=== PATIENT | male | born 1945 | race Caucasian/White ===

== ENCOUNTER 2017-08-23 15:17 | Emergency (ER) | payer OTHER, MEDICARE ==
[~2017-08-23] VITALS: Ht 175.3 cm; Wt 61.2 kg
[~2017-08-23 15:17] MED LIST: FLUO0.05 TOP; GLUC500C60 PO; Harvoni PO; LTRSCR45 TOP; MUTLIVITAMIN PO; NIAC500T7 PO; PRLSR20 PO; SYN75 PO; TOLNAFTATE TOP; TRAM-10 PO; ZNTT/150 PO; ketoconazole shampoo XX
[2017-08-23 15:30] VITALS: Ht 175.3 cm; Wt 61.2 kg
--- NOTE | 2017-08-23 15:54 | EMERGENCY ROOM VISIT NOTE ---
History Report prepared by Mariam: Mee Ewing Under the Supervision of: Dr. Cristina Aaron D.O. First contact with patient: 15:35 Chief Complaint: FALL Stated Complaint: FALL History of Present Illness The patient is a 72 year old male who presents to the Emergency Room with complaints of two episode of a fall occurring three days ago. The patient states he fell from a "scoliosis squatting position". The patient states that he hit his head and neck. He denies LOC. He believes he fell be cause he had a "loss of equilibrium". He fell a second time when he was getting up from the first fall. The patient has a history of falls and he believes his baseline standing position causes his falls. He reports that this episode of a fall felt different than his normal feeling of just being off balance. He reports right sided head pain and neck pain. Otherwise, the patient reports feeling well since the fall. He has had constipation for the past 4 days. He notes numbness and swelling of his legs which is normal for him. He wears compression stockings because he has lymphedema. The patient states the worsening bruises on his head concerned him and prompted him to come to the ED. The patient uses a cane to ambulate and he states he was not using it when he fell. The patient reports going to the cancer center for an annual check four days ago and states all of his counts were normal. He has a history of oropharyngeal cancer. Pt denies headache, dizziness, change in vision, fevers, chest pain, shortness of breath, nausea, vomiting, diarrhea, pain with urination, and melena. The patient has a history of vertigo and normal has episodes of vertigo twice a year. He states this episode of a fall is not like his previous episodes of vertigo. Source of History: patient Onset: 4 days ago Position: other (generalized) Quality: other (fall) Timing: other (episode ) Associated Symptoms: + neck pain, No headache, No chest pain, No SOB, No nausea, No vomiting, No urinary symptoms Review of Systems See HPI for pertinent positives & negatives. A total of 10 systems reviewed and were otherwise negative. Past Medical & Surgical Medical Problems: (1) Hepatitis (2) Oropharyngeal cancer (3) Repair of inguinal hernia Family History Patient reports no known family medical history. Social History Marital Status: single Housing Status: lives alone Occupation Status: disabled Current/Historical Medications Scheduled Levothyroxine Sodium (Synthroid), 75 MCG PO DAILY Tolnaftate (Tolnaftate), 1 APPLN TOP BID Scheduled PRN Ranitidine (Zantac), 75 MG PO DAILY PRN for HEARTBURN Allergies Coded Allergies: Morphine (Verified Adverse Reaction, Unknown, LOW BP, 08/23/17) Oxycodone (Verified Adverse Reaction, Unknown, INTOLERANCE PER DR NICHOLSON-- ELEVATED LIVER ENZYMES, 08/23/17) Physical Exam Vital Signs Date Time Temp Pulse Resp B/P (MAP) Pulse Ox O2 Delivery O2 Flow Rate FiO2 08/23/17 19:33 36.6 65 20 178/95 100 Room Air 08/23/17 18:18 68 20 185/100 100 Room Air 08/23/17 17:13 73 20 171/99 95 Room Air 08/23/17 16:18 67 08/23/17 15:30 36.7 65 20 174/102 100 Room Air Physical Exam GENERAL: alert, well appearing, well nourished, no distress, non-toxic EYE EXAM: normal conjunctiva, PERRL and EOM's grossly intact OROPHARYNX: no exudate, no erythema, lips, buccal mucosa, and tongue normal and mucous membranes are moist. HEAD: ecchymosis to right lateral forehead and right supraorbital region, no periorbital edema no subconjunctival hemorrhage, no hyphema. NECK: supple, no nuchal rigidity, no adenopathy, non-tender LUNGS: Clear to auscultation. Normal chest wall mechanics. No chest wall tenderness, no crepitus. HEART: no murmurs, S1 normal and S2 normal ABDOMEN: abdomen soft, non-tender, normo-active bowel sounds, no masses, no rebound or guarding. Pelvis stable. BACK: Severe kyphoscoliosis. No midline tenderness, no CVA tenderness. SKIN: no rashes and no bruising UPPER EXTREMITIES:No evidence of trauma, full ROM, upper extremities are grossly normal. LOWER EXTREMITIES: Chronic 2+ lower extremity edema. No evidence of trauma, full ROM, normal pulses. NEURO EXAM: Normal sensorium, cranial nerves II-XII grossly intact, normal speech, no gross weakness of arms, no gross weakness of legs. Medical Decision & Procedures ER Provider Diagnostic Interpretation: Radiology results have been interpreted by the radiologist and reviewed by me. CERVICAL SPINE W/O FINDINGS: Database Security Expert topogram: Unremarkable. Slight reversal of normal cervical lordosis at C4-5. 2 to 3 mm of grade 1 anterolisthesis of C4 on C5. Mild osteopenia. No acute fracture or malalignment. Vertebral body height essentially preserved. Intervertebral disc height loss at multiple levels with disc osteophyte complexes. Degenerative changes further detailed below. C2-3: Osseous fusion noted across the left C2-3 facet joints. No osseous neural foraminal or spinal canal narrowing. C3-4: Disc osteophyte complex with mild posterior bony spurring. Mild right osseous neural foraminal narrowing. C4-5: Disc osteophyte complex without significant posterior bony spurring. No significant neural foraminal or spinal canal narrowing. C5-6: Disc osteophyte complex without significant neural foraminal or spinal canal narrowing. C6-7: Disc osteophyte complex with mild posterior bony spurring. No significant osseous neural foraminal or spinal canal narrowing. Paraspinal soft tissues remarkable for atherosclerosis. Lung apices clear. IMPRESSION: 1. No acute osseous injury of the cervical spine. 2. Multilevel degenerative change as above. Electronically signed by: Dexter Ely M.D. CHEST ONE VIEW PORTABLE FINDINGS: Severe scoliosis of the thoracolumbar spine is noted. Linear left basilar opacities are suggestive of atelectasis. Cardiomediastinal silhouette is stable. There is no pneumothorax or pleural effusion. There are several old right rib fractures. IMPRESSION: No acute cardiopulmonary findings. No change in appearance of the chest. Electronically signed by: Nolberto Roque M.D. CT OF THE HEAD WITHOUT CONTRAST FINDINGS: No acute intracranial hemorrhage, midline shift or mass effect is present. Ventricular system is unremarkable for age. Basilar cisterns are patent. There are no extra-axial collections. Mild white matter hypodensities suggest small vessel disease. There is bilateral basal ganglia calcification. There are no findings to suggest acute dural sinus thrombosis or acute territorial infarct. No calvarial fracture is identified. Visualized portions of the sinuses and mastoid air cells are clear. IMPRESSION: 1. No acute intracranial findings. 2. No calvarial fracture. Electronically signed by: Nolberto Roque M.D. PELVIS 1 OR 2 VIEW ROUTINE FINDINGS: The sacroiliac joints and symphysis pubis are intact. There is no acute fracture identified within the pelvis or the hips. 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 Levoscoliosis of the lumbar spine is partially imaged. IMPRESSION: No acute fracture within the pelvis or hips. Electronically signed by: Nolberto Roque M.D. Laboratory Results 08/23/17 16:15 Red Blood Count 3.71, Mean Corpuscular Volume 97.3, Mean Corpuscular Hemoglobin 32.9, Mean Corpuscular Hemoglobin Concent 33.8, Mean Platelet Volume 8.8, Neutrophils (%) (Auto) 74.9, Lymphocytes (%) (Auto) 11.7, Monocytes (%) (Auto) 10.4, Eosinophils (%) (Auto) 1.7, Basophils (%) (Auto) 0.2, Neutrophils # (Auto ) 4.76, Lymphocytes # (Auto) 0.74, Monocytes # (Auto) 0.66, Eosinophils # (Auto ) 0.11, Basophils # (Auto) 0.01 08/23/17 16:15 Test 08/23/17 16:15 08/23/17 17:15 White Blood Count 6.35 K/uL (4.8-10.8) Red Blood Count 3.71 M/uL (4.7-6.1) Hemoglobin 12.2 g/dL (14.0-18.0) Hematocrit 36.1 % (42-52) Mean Corpuscular Volume 97.3 fL (80-100) Mean Corpuscular Hemoglobin 32.9 pg (25-34) Mean Corpuscular Hemoglobin Concent 33.8 g/dl (32-36) Platelet Count 228 K/uL (130-400) Mean Platelet Volume 8.8 fL (7.4-10.4) Neutrophils (%) (Auto) 74.9 % Lymphocytes (%) (Auto) 11.7 % Monocytes (%) (Auto) 10.4 % Eosinophils (%) (Auto) 1.7 % Basophils (%) (Auto) 0.2 % Neutrophils # (Auto) 4.76 K/uL (1.4-6.5) Lymphocytes # (Auto) 0.74 K/uL (1.2-3.4) Monocytes # (Auto) 0.66 K/uL (0.11-0.59) Eosinophils # (Auto) 0.11 K/uL (0-0.5) Basophils # (Auto) 0.01 K/uL (0-0.2) RDW Standard Deviation 44.6 fL (36.4-46.3) RDW Coefficient of Variation 12.8 % (11.5-14.5) Immature Granulocyte % (Auto) 1.1 % Immature Granulocyte # (Auto) 0.07 K/uL (0.00-0.02) Prothrombin Time 11.0 SECONDS (9.0-12.0) Prothromb Time International Ratio 1.0 (0.9-1.1) Anion Gap 4.0 mmol/L (3-11) Est Creatinine Clear Calc Drug Dose 62.6 ml/min Estimated GFR () 96.6 Estimated GFR (Non- 83.3 BUN/Creatinine Ratio 22.9 (10-20) Calcium Level 8.1 mg/dl (8.5-10.1) Magnesium Level 2.4 mg/dl (1.8-2.4) Total Bilirubin 0.5 mg/dl (0.2-1) Aspartate Amino Transf (AST/SGOT) 26 U/L (15-37) Alanine Aminotransferase (ALT/SGPT) 29 U/L (12-78) Alkaline Phosphatase 61 U/L (45-117) Troponin I < 0.015 ng/ml (0-0.045) Total Protein 6.3 gm/dl (6.4-8.2) Albumin 3.0 gm/dl (3.4-5.0) Globulin 3.3 gm/dl (2.5-4.0) Albumin/Globulin Ratio 0.9 (0.9-2) Lipase 130 U/L (73-393) Influenza Type A Antigen Neg for Influ A (NEG) Influenza Type B Antigen Neg for Influ B (NEG) Urine Color YELLOW Urine Appearance CLEAR (CLEAR) Urine pH 5.5 (4.5-7.5) Urine Specific [place] 1.012 (1.000-1.030) Urine Protein NEG (NEG) Urine Glucose (UA) NEG (NEG) Urine Ketones NEG (NEG) Urine Occult Blood NEG (NEG) Urine Nitrite NEG (NEG) Urine Bilirubin NEG (NEG) Urine Urobilinogen NEG (NEG) Urine Leukocyte Esterase NEG (NEG) Laboratory results per my review. ED Course 1539: The patient was evaluated in room B2. A complete history and physical exam was performed. 1840: The patient ambulated with steady gait using cane. He denies any symptoms during ambulation. Case management is going to arrange the patient a ride home. The patient's blood pressure was 160/100. Medical Decision Differential diagnosis: Etiologies such as fracture, dislocation, intra-abdominal, pneumothorax, intrathoracic , intracranial, neurologic, as well as other traumatic pathologies were entertained. Pt not anticoagulated, no prodromal sx to suggest usual vertigo or acs, pe cva, dysrhythmia. Likely related to hx of being off balance and requiring a cane from severe kyphoscoliosis. No evidence of trauma. Pt able to ambulate here without any additional difficulty and no evolving symptoms. Discussed with pt f /u with PCP, sx to watch/return for, he verbalized understanding and was agreeable with plan. Medication Reconcilliation Current Medication List: was personally reviewed by me Blood Pressure Screening Patient's blood pressure: Elevated blood pressure Blood pressure disposition: Referred to PCP Impression Primary Impression: Fall Additional Impressions: Contusion of multiple sites CHI (closed head injury) Scribe Attestation The scribe's documentation has been prepared under my direction and personally reviewed by me in its entirety. I confirm that the note above accurately reflects all work, treatment, procedures, and medical decision making performed by me. Departure Information Dispostion Home / Self-Care Referrals Ivette Ayers M.D. (PCP) Forms HOME CARE DOCUMENTATION FORM, IMPORTANT VISIT INFORMATION Patient Instructions My [facility] Additional Instructions Please continue regular medications as prescribed. Please follow up with your family doctor to recheck your injuries and make sure you're getting better. If you have any recurrent falls, develop dizziness or lightheadedness, feel you're unable to walk, develop chest pain, trouble breathing, headaches, vision changes , worsening lower extremity swelling, or you've any other new concerns, please return the emergency room. Problem Qualifiers Primary Impression: Fall Encounter type: initial encounter Qualified Codes: W19.XXXA - Unspecified fall, initial encounter Additional Impressions: CHI (closed head injury) Encounter type: initial encounter Qualified Codes: S09.90XA - Unspecified injury of head, initial encounter
--- NOTE | 2017-08-23 16:23 | DIAGNOSTIC IMAGING REPORT ---
CHEST ONE VIEW PORTABLE CLINICAL HISTORY: Fall. COMPARISON STUDY: Chest radiograph January 12, 2016. FINDINGS: Severe scoliosis of the thoracolumbar spine is noted. Linear left basilar opacities are suggestive of atelectasis. Cardiomediastinal silhouette is stable. There is no pneumothorax or pleural effusion. There are several old right rib fractures. IMPRESSION: No acute cardiopulmonary findings. No change in appearance of the chest. Electronically signed by: Nolberto Roque M.D. 08/23/2017 4:22 PM Dictated Date/Time: 08/23/2017 4:20 PM
[2017-08-23 16:24] LABS: BASO % 0.2 %; BASO ABS # 0.01 K/uL (0-0.2); COMPLETE YES; EOS % 1.7 %; HEMATOCRIT 36.1 % (42-52); IG% 1.1 %; LYMPH % 11.7 %; LYMPH ABS # 0.74 K/uL (1.2-3.4); MEAN CELL VOLUME 97.3 fL (80-100); MEAN CORPUSCULAR HEMOGLOBIN 32.9 pg (25-34); MEAN CORPUSCULAR HGB CONC 33.8 g/dl (32-36); MEAN PLATELET VOLUME 8.8 fL (7.4-10.4); MONO % 10.4 %; NEUT % 74.9 %; PLATELET COUNT 228 K/uL (130-400); RED BLOOD COUNT 3.71 M/uL (4.7-6.1); WHITE BLOOD COUNT 6.35 K/uL (4.8-10.8)
[2017-08-23 16:45] LABS: ALT/SGPT 29 U/L (12-78); BLOOD UREA NITROGEN 21 mg/dl (7-18); BUN/CREATININE RATIO 22.9 (10-20); CALCIUM 8.1 mg/dl (8.5-10.1); CARBON DIOXIDE 31 mmol/L (21-32); CHLORIDE 102 mmol/L (98-107); CREATININE 0.91 mg/dl (0.60-1.40); GLUCOSE 81 mg/dl (70-99); MAGNESIUM 2.4 mg/dl (1.8-2.4); POTASSIUM 4.3 mmol/L (3.5-5.1); SODIUM 137 mmol/L (136-145)
[2017-08-23 16:50] LABS: ALB/GLOB RATIO 0.9 (0.9-2); ALKALINE PHOSPHATASE 61 U/L (45-117); AST/SGOT 26 U/L (15-37)
--- NOTE | 2017-08-23 16:57 | DIAGNOSTIC IMAGING REPORT ---
PELVIS 1 OR 2 VIEW ROUTINE CLINICAL HISTORY: Fall. COMPARISON STUDY: PET/CT June 24, 2010. FINDINGS: The sacroiliac joints and symphysis pubis are intact. There is no acute fracture identified within the pelvis or the hips. 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 Levoscoliosis of the lumbar spine is partially imaged. IMPRESSION: No acute fracture within the pelvis or hips. Electronically signed by: Nolberto Roque M.D. 08/23/2017 4:56 PM Dictated Date/Time: 08/23/2017 4:55 PM
--- NOTE | 2017-08-23 17:06 | DIAGNOSTIC IMAGING REPORT ---
CT OF THE HEAD WITHOUT CONTRAST CLINICAL HISTORY: Trauma. COMPARISON STUDY: PET CT June 24, 2010, head CT October 05, 2009 and MRI of the brain December 04, 2008. CT DOSE: 1126.16 mGy.cm TECHNIQUE: Helical axial images of the head were obtained without IV contrast. Automated exposure control was utilized for the study. A dose lowering technique was utilized adhering to the principles of ALARA. FINDINGS: No acute intracranial hemorrhage, midline shift or mass effect is present. Ventricular system is unremarkable for age. Basilar cisterns are patent. There are no extra-axial collections. Mild white matter hypodensities suggest small vessel disease. There is bilateral basal ganglia calcification. There are no findings to suggest acute dural sinus thrombosis or acute territorial infarct. No calvarial fracture is identified. Visualized portions of the sinuses and mastoid air cells are clear. IMPRESSION: 1. No acute intracranial findings. 2. No calvarial fracture. Electronically signed by: Nolberto Roque M.D. 08/23/2017 5:05 PM Dictated Date/Time: 08/23/2017 5:02 PM
--- NOTE | 2017-08-23 17:16 | DIAGNOSTIC IMAGING REPORT ---
CERVICAL SPINE W/O CLINICAL HISTORY: 72 years-old Male presenting with trauma, pain. TECHNIQUE: Multidetector CT of the cervical spine was performed without the use of intravenous contrast. IV contrast: None. A dose lowering technique was used consistent with the principles of ALARA (as low as reasonably achievable). COMPARISON: MR C-spine from 2009. CT DOSE (mGy.cm): The estimated cumulative dose is 1126.16. FINDINGS: Learning Operations Specialist topogram: Unremarkable. Slight reversal of normal cervical lordosis at C4-5. 2 to 3 mm of grade 1 anterolisthesis of C4 on C5. Mild osteopenia. No acute fracture or malalignment. Vertebral body height essentially preserved. Intervertebral disc height loss at multiple levels with disc osteophyte complexes. Degenerative changes further detailed below. C2-3: Osseous fusion noted across the left C2-3 facet joints. No osseous neural foraminal or spinal canal narrowing. C3-4: Disc osteophyte complex with mild posterior bony spurring. Mild right osseous neural foraminal narrowing. C4-5: Disc osteophyte complex without significant posterior bony spurring. No significant neural foraminal or spinal canal narrowing. C5-6: Disc osteophyte complex without significant neural foraminal or spinal canal narrowing. C6-7: Disc osteophyte complex with mild posterior bony spurring. No significant osseous neural foraminal or spinal canal narrowing. Paraspinal soft tissues remarkable for atherosclerosis. Lung apices clear. IMPRESSION: 1. No acute osseous injury of the cervical spine. 2. Multilevel degenerative change as above. Electronically signed by: Dexter Ely M.D. 08/23/2017 5:15 PM Dictated Date/Time: 08/23/2017 5:03 PM
[2017-08-23 17:44] LABS: URINE APPEARANCE CLEAR (CLEAR); URINE BILIRUBIN NEG (NEG); URINE COLOR YELLOW; URINE NITRITE NEG (NEG); URINE PH 5.5 (4.5-7.5); URINE SPECIFIC GRAVITY 1.012 (1.000-1.030); UROBILINOGEN NEG (NEG); ZZUR CULT IF INDIC CLEAN CATCH NO
[2017-08-23 17:53] LABS: MANUAL MICROSCOPIC REQUIRED? NO; REVIEW REQ? NO
[2017-08-23] MEDS ORDERED: ZNTT/150 PO (18:21)
[2017-08-23] MEDS ORDERED: LEVO75TA PO (18:21)
[2017-08-23] MEDS ORDERED: TOLN1CRE26 TOP (18:21)
[2017-08-23 19:33] VITALS: BP 178/95; PULSE 65; TEMP 36.6; O2SAT 100
== END 2017-08-23 19:35 | disposition home or self-care (01) ==
LOC: EDBD 15:17 → C.EDB 15:18
DX: T14.8XXA Other injury of unspecified body region, initial encounter (principal); S09.90XA Unspecified injury of head, initial encounter; W19.XXXA Unspecified fall, initial encounter; Y92.9 Unspecified place or not applicable; Z86.19 Personal history of other infectious and parasitic diseases; Z85.818 Personal history of malignant neoplasm of other sites of lip, oral cavity, and pharynx; Z79.899 Other long term (current) drug therapy

== ENCOUNTER 2017-12-14 00:59 | Inpatient (IN) | payer OTHER, MEDICARE ==
[~2017-12-14] VITALS: Ht 177.8 cm; Wt 72.6 kg
[2017-12-14] VITALS (10 sets, daily range): BP systolic 107–165; BP diastolic 67–94; PULSE 68–96; TEMP 36.3–37.1; O2SAT 96–100; BMI 19.9; BMI 20.6
[~2017-12-14 00:59] MED LIST changes: -FLUO0.05 TOP; -GLUC500C60 PO; -Harvoni PO; +LEVO75TA PO; -LTRSCR45 TOP; -MUTLIVITAMIN PO; -NIAC500T7 PO; -PRLSR20 PO; +RANI150T85 PO; -SYN75 PO; +TOLN1CRE26 TOP; -TOLNAFTATE TOP; -TRAM-10 PO; -ZNTT/150 PO; -ketoconazole shampoo XX
[2017-12-14] MEDS ORDERED: FENTANYL CITRATE INJ 50 MCG/1 ML 2 ML VIAL ONE ×3 (01:21→16:59)
[2017-12-14 01:43] LABS: BASO % 0.1 %; BASO ABS # 0.01 K/uL (0-0.2); EOS % 0.5 %; EOS ABS # 0.05 K/uL (0-0.5); HEMATOCRIT 38.9 % (42-52); HEMOGLOBIN 13.3 g/dL (14.0-18.0); LYMPH % 7.6 %; LYMPH ABS # 0.75 K/uL (1.2-3.4); MEAN CORPUSCULAR HEMOGLOBIN 32.8 pg (25-34); MEAN CORPUSCULAR HGB CONC 34.2 g/dl (32-36); MEAN PLATELET VOLUME 8.4 fL (7.4-10.4); MONO % 4.7 %; MONO ABS # 0.47 K/uL (0.11-0.59); NEUT % 86.1 %; NEUT ABS # 8.55 K/uL (1.4-6.5); PLATELET COUNT 202 K/uL (130-400); RED CELL DISTRIBUTION WIDTH CV 12.7 % (11.5-14.5); RED CELL DISTRIBUTION WIDTH SD 44.2 fL (36.4-46.3); WHITE BLOOD COUNT 9.93 K/uL (4.8-10.8)
[2017-12-14 01:53] LABS: INR 1.1 (0.9-1.1); PTT PATIENT 23.2 SECONDS (21.0-31.0)
[2017-12-14 02:00] LABS: CALCIUM 8.2 mg/dl (8.5-10.1); CREATININE 0.94 mg/dl (0.60-1.40); POTASSIUM 3.5 mmol/L (3.5-5.1)
--- NOTE | 2017-12-14 02:22 | EMERGENCY ROOM VISIT NOTE ---
ED Visit Note First contact with patient: 01:08 I saw this patient in conjunction with Ashlee Pina PA-C. I agree with her decision making and treatment plan.
[2017-12-14] MEDS ORDERED: FENTANYL CITRATE INJ 50 MCG/1 ML 2 ML VIAL IV STA (02:39)
--- NOTE | 2017-12-14 03:21 | EMERGENCY ROOM VISIT NOTE ---
History First contact with patient: 01:08 Chief Complaint: HIP PAIN Stated Complaint: HIP PAIN/FALL History of Present Illness The patient is a 72 year old male who presents to the Emergency Room with complaints of right hip pain after a fall. The fall occurred approximately 2-3 hours ago. The patient states that he has a "loss of equilibrium" and lost his balance, falling back into a chair. He fell directly onto his right hip. He did hit his head. He reports sharp pain in the right hip noted a 9/10. The pain radiates into the thigh. It is worsened by any movements of the leg or touching the hip. He did receive some pain medication in the ambulance which helped slightly. He denies pain elsewhere. The patient states that this loss of equilibrium is a chronic issue for him and he has been seen for in the past. He has a history of oropharyngeal cancer and subsequent hypothyroidism and takes Synthroid for this. The patient denies any other medical problems. The fall was not associated with any lightheadedness, chest pain or shortness of breath. The patient lives in an apartment alone and was able to contact EMS by life alert. Review of Systems A complete 10 point review of systems was reviewed with the patient with pertinent positives and negatives as per history of present illness. All else were negative. Past Medical/Surgical History Medical Problems: (1) Hepatitis (2) Oropharyngeal cancer (3) Repair of inguinal hernia Family History Patient reports no known family medical history. Social History Smoking Status: Former Smoker Marital Status: single Housing Status: lives alone Occupation Status: disabled Current/Historical Medications Scheduled Levothyroxine Sodium (Synthroid), 75 MCG PO DAILY Tolnaftate (Tolnaftate), 1 APPLN TOP BID Scheduled PRN Ranitidine (Zantac), 75 MG PO DAILY PRN for HEARTBURN Physical Exam Vital Signs Date Time Temp Pulse Resp B/P (MAP) Pulse Ox O2 Delivery O2 Flow Rate FiO2 12/14/17 04:31 116/65 12/14/17 04:17 64 12 96 Room Air 12/14/17 04:11 114/63 12/14/17 04:09 Room Air 12/14/17 03:47 67 14 12/14/17 03:42 67 18 12/14/17 03:31 118/67 12/14/17 03:12 76 19 12/14/17 03:00 149/84 12/14/17 02:42 68 12 100 12/14/17 02:37 149/84 12/14/17 02:35 68 18 176/85 95 Room Air 12/14/17 02:04 77 14 100 12/14/17 01:59 75 16 12/14/17 01:29 71 12 93 Room Air 12/14/17 01:24 184/94 12/14/17 01:11 36.5 69 19 184/94 94 Room Air 12/14/17 01:08 65 12/14/17 01:02 184/94 Physical Exam VITALS: Vitals are noted on the nurse's note and reviewed by myself. Vital signs stable. GENERAL: This is a 72-year-old male, in no acute distress but uncomfortable appearing, well-developed well-nourished. SKIN: The skin was without rashes, erythema, edema, or bruising. HEAD: Normocephalic atraumatic. EARS: External auditory canals clear, tympanic membranes pearly garcia without erythema or effusion bilaterally. No hemotympanum. EYES: Pupils equal round and reactive to light and accommodation. Extraocular movements intact. MOUTH: Mucous membranes moist. NECK: Supple without nuchal rigidity. Cervical spine is nontender. HEART: Regular rate and rhythm without murmurs gallops or rubs. LUNGS: Clear to auscultation bilaterally without wheezes, rales or rhonchi. MUSCULOSKELETAL: Patient's right leg is folded underneath his left leg in position of comfort. There is tenderness to palpation to the right lateral hip. No tenderness of the knee or tibia/fibula. Dorsalis pedis pulse 2+. Otherwise no tenderness on exam. NEURO: Patient was alert and oriented to person place and time. Medical Decision & Procedures ER Provider Diagnostic Interpretation: CT HEAD: No acute intracranial hemorrhage, mass, or shift in midline structure. Small vessel ischemic changes in the white matter. Cerebral atrophy. Paranasal sinuses and mastoid air cells are clear. Calvarium is intact. CT C SPINE: Impression: No evidence of fracture. Grade 1 anterolisthesis of C4 on C5 secondary to facet arthrosis. Moderate to severe multilevel cervical spondylosis is not significantly changed from the prior exam. Osseous fusion between the left C2 and C3 posterior facets. Loss of cervical lordosis may be due to positioning or muscle spasm. Radiologist: Gualberto Baril, DO RIGHT FEMUR, PELVIS W/ UNILATERAL HIP: Intertrochanteric fracture of the right femur. No pelvic fracture is noted. CHEST 1 VIEW: Significant scoliosis noted. No acute cardiopulmonary findings. Laboratory Results 12/14/17 01:36 Red Blood Count 4.05, Mean Corpuscular Volume 96.0, Mean Corpuscular Hemoglobin 32.8, Mean Corpuscular Hemoglobin Concent 34.2, Mean Platelet Volume 8.4, Neutrophils (%) (Auto) 86.1, Lymphocytes (%) (Auto) 7.6, Monocytes (%) (Auto) 4.7, Eosinophils (%) (Auto) 0.5, Basophils (%) (Auto) 0.1, Neutrophils # (Auto) 8.55, Lymphocytes # (Auto) 0.75, Monocytes # (Auto) 0.47, Eosinophils # (Auto) 0.05, Basophils # (Auto) 0.01 12/14/17 01:36 Test 12/14/17 01:36 12/14/17 01:45 White Blood Count 9.93 K/uL (4.8-10.8) Red Blood Count 4.05 M/uL (4.7-6.1) Hemoglobin 13.3 g/dL (14.0-18.0) Hematocrit 38.9 % (42-52) Mean Corpuscular Volume 96.0 fL (80-100) Mean Corpuscular Hemoglobin 32.8 pg (25-34) Mean Corpuscular Hemoglobin Concent 34.2 g/dl (32-36) Platelet Count 202 K/uL (130-400) Mean Platelet Volume 8.4 fL (7.4-10.4) Neutrophils (%) (Auto) 86.1 % Lymphocytes (%) (Auto) 7.6 % Monocytes (%) (Auto) 4.7 % Eosinophils (%) (Auto) 0.5 % Basophils (%) (Auto) 0.1 % Neutrophils # (Auto) 8.55 K/uL (1.4-6.5) Lymphocytes # (Auto) 0.75 K/uL (1.2-3.4) Monocytes # (Auto) 0.47 K/uL (0.11-0.59) Eosinophils # (Auto) 0.05 K/uL (0-0.5) Basophils # (Auto) 0.01 K/uL (0-0.2) RDW Standard Deviation 44.2 fL (36.4-46.3) RDW Coefficient of Variation 12.7 % (11.5-14.5) Immature Granulocyte % (Auto) 1.0 % Immature Granulocyte # (Auto) 0.10 K/uL (0.00-0.02) Prothrombin Time 11.2 SECONDS (9.0-12.0) Prothromb Time International Ratio 1.1 (0.9-1.1) Activated Partial Thromboplast Time 23.2 SECONDS (21.0-31.0) Partial Thromboplastin Ratio 0.9 Anion Gap 7.0 mmol/L (3-11) Est Creatinine Clear Calc Drug Dose 61.1 ml/min Estimated GFR () 92.9 Estimated GFR (Non- 80.1 BUN/Creatinine Ratio 22.6 (10-20) Calcium Level 8.2 mg/dl (8.5-10.1) Urine Color YELLOW Urine Appearance CLEAR (CLEAR) Urine pH 7.5 (4.5-7.5) Urine Specific [place] 1.014 (1.000-1.030) Urine Protein NEG (NEG) Urine Glucose (UA) NEG (NEG) Urine Ketones NEG (NEG) Urine Occult Blood NEG (NEG) Urine Nitrite NEG (NEG) Urine Bilirubin NEG (NEG) Urine Urobilinogen NEG (NEG) Urine Leukocyte Esterase NEG (NEG) Medications Administered Medications (Trade) Dose Ordered Sig/Pam Route Start Time Stop Time Status Last Admin Dose Admin Fentanyl Citrate (Fentanyl Inj) 100 mcg STK-MED ONCE .ROUTE 12/14/17 01:21 12/14/17 01:22 DC 12/14/17 01:23 50 MCG Fentanyl Citrate (Fentanyl Inj) 50 mcg NOW STAT IV 12/14/17 02:39 12/14/17 02:40 DC 12/14/17 02:44 50 MCG Sodium Chloride 1,000 ml @ 100 mls/hr Q10H IV 12/14/17 04:15 01/13/18 04:14 12/14/17 04:32 100 MLS/HR ECG Per My Interpretation Indication: other Rate (beats per minute): 64 Rhythm: normal sinus Findings: no acute ischemic change, no ectopy Change: no significant change ED Course The patient was evaluated as above. Labs were drawn and IV access was obtained. Patient was medicated with 50 micrograms fentanyl. Imaging studies were performed and read as above. Patient was reevaluated and findings discussed. He was having continued pain and was given a second dose of fentanyl. Case was discussed with the [facility] hospitalist, Dr. Taylor in the resident, Dr. Michael. They agreed to evaluate the patient for admission. I did speak with Dr. Ramírez regarding the patient at the request of the hospitalist team. He recommended keeping the patient n.p.o. for possible surgery later today. Medical Decision Differential diagnosis includes hip fracture, hip contusion, hip dislocation, pelvic fracture, intracranial bleed, C-spine fracture, among others. The patient is a 72-year-old male who presents today complaining of right hip pain after a fall. X-rays showed an intertrochanteric fracture of the right hip. CT of the head and C-spine were negative for any acute findings. Labs revealed no leukocytosis, anemia or concerning electrolyte abnormalities. Urinalysis was not suggestive of infection. [facility] right [facility]. The patient was independently evaluated by Dr. Reese, ED attending physician, who agreed with my assessment and treatment plan. Medication Reconcilliation Current Medication List: was personally reviewed by me Blood Pressure Screening Patient's blood pressure: Elevated blood pressure Blood pressure disposition: Elevated BP felt to be situational Impression Primary Impression: Femur fracture, right Departure Information Referrals Phill Flynn D.O. (PCP) Patient Instructions My [facility] Health Problem Qualifiers Primary Impression: Femur fracture, right Encounter type: initial encounter Femur location: intertrochanteric Fracture type: closed Fracture alignment: displaced Qualified Codes: S72.141A - Displaced intertrochanteric fracture of right femur, initial encounter for closed fracture
[2017-12-14] MEDS ORDERED: ONDANSETRON INJ 2 MG/ML 2 ML VIAL IV PRN ×2 (04:15→16:45)
[2017-12-14] MEDS ORDERED: POLYETHYLENE (MIRALAX) 17 GM PACK PO PRN (04:15)
[2017-12-14] MEDS ORDERED: MAGNESIUM HYDROXIDE SUSP 30 ML UDC PO PRN ×2 (04:15→18:00)
[2017-12-14] MEDS ORDERED: FENTANYL CITRATE INJ 50 MCG/1 ML 2 ML VIAL IV PRN (04:15)
[2017-12-14] MEDS ORDERED: ENOXAPARIN 40 MG/0.4 ML SYR SQ SCH (04:15)
[2017-12-14] MEDS ORDERED: ALUMINUM/MAGNESIUM/SIMETH (MAALOX MAX) 30 ML UDC PO PRN (04:15)
[2017-12-14] MEDS ORDERED: ACETAMINOPHEN 325 MG TAB PO PRN (04:15)
--- NOTE | 2017-12-14 04:30 | History and Physical ---
History & Physical Date & Time of Service: Dec 14, 2017 at 04:17 Chief Complaint: Hip Pain/Fall Primary Care Physician: Phill Flynn D.OMary History of Present Illness Source: patient 72 year old male with a PMH of hypothyroidism and vertigo presented to [facility] after having a fall at home He says that he was sitting on his kitchen chair at home when his knees locked up and he fell off the back of his chair. He fell and hit his head and his R hip. He has an Alert badge which he wears (this went off) and got EMS to go to the patients home. The patient denies any loss of consciousness, urinary or bowel incontinence, chest pain, palpitations, headaches, dizziness. He denies any swelling or bruising of his right hip. In the ED he had a XRAY which showed a intertrochanteric fracture of of his R hip. Past Medical/Surgical History Medical Problems: (1) CHI (closed head injury) (2) Contusion of multiple sites (3) Fall (4) Hepatitis (5) Oropharyngeal cancer (6) Repair of inguinal hernia Family History Patient reports no known family medical history. Social History Smoking Status: Former Smoker Smokeless Tobacco Use: No Alcohol Use: none Drug Use: none Marital Status: single Housing status: lives alone Occupational Status: disabled Immunizations History of Influenza Vaccine: Yes Influenza Vaccine Date: Jun 13, 2008 History of Tetanus Vaccine?: Yes History of Pneumococcal: No Pneumococcal Date: January 12, 2004 History of Hepatitis B Vaccine: No Hepatitis Immunization Date: January 11, 2003 Allergies Coded Allergies: Morphine (Verified Adverse Reaction, Unknown, LOW BP, 12/14/17) Oxycodone (Verified Adverse Reaction, Unknown, INTOLERANCE PER DR NICHOLSON-- ELEVATED LIVER ENZYMES, 12/14/17) Home Medications Scheduled Levothyroxine Sodium (Synthroid), 75 MCG PO DAILY Tolnaftate (Tolnaftate), 1 APPLN TOP BID Scheduled PRN Ranitidine (Zantac), 75 MG PO DAILY PRN for HEARTBURN Review of Systems Constitutional: No fever, No chills, No weakness, No fatigue Respiratory: No cough, No sputum, No shortness of breath Cardiovascular: No chest pain, No orthopnea, No edema, No palpitations Abdomen: No pain, No nausea, No diarrhea Musculoskeletal: + joint pain, + muscle pain, No swelling, No calf pain Genitourinary - Male: No hematuria, No dysuria Neurologic: No memory loss, No numbness/tingling, No vertigo Hematologic / Lymphatic: No abnormal bleeding/bruising, No clotting problems, No swollen lymph nodes Integumentary: No rash, No itch, No new/changing skin lesions Physical Exam Vital Signs Date Time Temp Pulse Resp B/P (MAP) Pulse Ox O2 Delivery O2 Flow Rate FiO2 12/14/17 03:42 67 18 12/14/17 03:31 118/67 12/14/17 03:12 76 19 12/14/17 03:00 149/84 12/14/17 02:42 68 12 100 12/14/17 02:37 149/84 12/14/17 02:35 68 18 176/85 95 Room Air 12/14/17 02:04 77 14 100 12/14/17 01:59 75 16 12/14/17 01:29 71 12 93 Room Air 12/14/17 01:24 184/94 12/14/17 01:11 36.5 69 19 184/94 94 Room Air 12/14/17 01:08 65 12/14/17 01:02 184/94 General Appearance: WD/WN, no apparent distress Head: normocephalic, atraumatic Eyes: normal inspection, PERRL ENT: hearing grossly normal, pharynx normal Neck: supple, thyroid normal, no JVD, no carotid bruits, trachea midline Respiratory/Chest: lungs clear, no respiratory distress, no accessory muscle use Cardiovascular: regular rate, rhythm, no murmur, normal peripheral pulses Abdomen/GI: normal bowel sounds, non tender, soft Extremities/Musculoskelatal: no calf tenderness, no pedal edema, + pertinent finding (pain to palpation over the anterior thigh and lateral R hip) Neurologic/Psych: alert, normal mood/affect, oriented x 3, + pertinent finding (decreased sensation of the R foot and cage on the R side, pulses intact) Skin: normal color, warm/dry, no rash Diagnostics Laboratory Results Results Past 24 Hours Test 12/14/17 01:36 12/14/17 01:45 Range/Units White Blood Count 9.93 4.8-10.8 K/uL Red Blood Count 4.05 4.7-6.1 M/uL Hemoglobin 13.3 14.0-18.0 g/dL Hematocrit 38.9 42-52 % Mean Corpuscular Volume 96.0 80-100 fL Mean Corpuscular Hemoglobin 32.8 25-34 pg Mean Corpuscular Hemoglobin Concent 34.2 32-36 g/dl Platelet Count 202 130-400 K/uL Mean Platelet Volume 8.4 7.4-10.4 fL Neutrophils (%) (Auto) 86.1 % Lymphocytes (%) (Auto) 7.6 % Monocytes (%) (Auto) 4.7 % Eosinophils (%) (Auto) 0.5 % Basophils (%) (Auto) 0.1 % Neutrophils # (Auto) 8.55 1.4-6.5 K/uL Lymphocytes # (Auto) 0.75 1.2-3.4 K/uL Monocytes # (Auto) 0.47 0.11-0.59 K/uL Eosinophils # (Auto) 0.05 0-0.5 K/uL Basophils # (Auto) 0.01 0-0.2 K/uL RDW Standard Deviation 44.2 36.4-46.3 fL RDW Coefficient of Variation 12.7 11.5-14.5 % Immature Granulocyte % (Auto) 1.0 % Immature Granulocyte # (Auto) 0.10 0.00-0.02 K/uL Prothrombin Time 11.2 9.0-12.0 SECONDS Prothromb Time International Ratio 1.1 0.9-1.1 Activated Partial Thromboplast Time 23.2 21.0-31.0 SECONDS Partial Thromboplastin Ratio 0.9 Sodium Level 139 136-145 mmol/L Potassium Level 3.5 3.5-5.1 mmol/L Chloride Level 104 98-107 mmol/L Carbon Dioxide Level 28 21-32 mmol/L Anion Gap 7.0 3-11 mmol/L Blood Urea Nitrogen 21 7-18 mg/dl Creatinine 0.94 0.60-1.40 mg/dl Est Creatinine Clear Calc Drug Dose 61.1 ml/min Estimated GFR () 92.9 Estimated GFR (Non- 80.1 BUN/Creatinine Ratio 22.6 10-20 Random Glucose 113 70-99 mg/dl Calcium Level 8.2 8.5-10.1 mg/dl Urine Color YELLOW Urine Appearance CLEAR CLEAR Urine pH 7.5 4.5-7.5 Urine Specific [place] 1.014 1.000-1.030 Urine Protein NEG NEG Urine Glucose (UA) NEG NEG Urine Ketones NEG NEG Urine Occult Blood NEG NEG Urine Nitrite NEG NEG Urine Bilirubin NEG NEG Urine Urobilinogen NEG NEG Urine Leukocyte Esterase NEG NEG Diagnostic Radiology CT HEAD: No acute intracranial hemorrhage, mass, or shift in midline structure. Small vessel ischemic changes in the white matter. Cerebral atrophy. Paranasal sinuses and mastoid air cells are clear. Calvarium is intact. CT C SPINE: Impression: No evidence of fracture. Grade 1 anterolisthesis of C4 on C5 secondary to facet arthrosis. Moderate to severe multilevel cervical spondylosis is not significantly changed from the prior exam. Osseous fusion between the left C2 and C3 posterior facets. Loss of cervical lordosis may be due to positioning or muscle spasm. R Femur Xray and R Pelvic Xray Intertrochanteric fracture of the right hip Impression Assessment and Plan 72 year old male with a PMH of hypothyroidism and vertigo that presented after a fall and was found to have an intertrochanteric fracture of the R hip Intertrochanteric fracture of the R hip - Dr. Ramírez consulted - NPO - Pain meds with fentanyl IV 25mcg q4 - Zofran IV prn nausea - IVF with 100 mls/hr Hypothyroidism - continue levothyroxine GERD - continue ranitidine DVT - hold for surgeon to decide post-op FULL CODE Attending addendum: I have physically seen this patient, have supervised the medical residents activities, and agree with the H&P unless as otherwise noted. Assessment and Plan: Right hip intertrochanteric fracture-- N.p.o. after midnight Admit to medical surgical floor. Normal saline at 100 mils per hour. Zofran 4 mg IV every 6 hours as needed Morphine sulfate 2 mg IV every 4 hours as needed. Consult Dr. Remi Ramírez from orthopedic surgery. GERD--ranitidine 150 mg p.o. twice daily. Hypothyroidism--continue levothyroxine sodium 75 mcg daily. Advanced Directives Existing Advance Directive: No Existing Living Will: No Existing Power of Exit Booth Agent: No Resuscitation Status VTE Prophylaxis Will order VTE Prophylaxis: Yes
[2017-12-14] MEDS: SODIUM CHLORIDE 0.9% 1000ML 1,000 ML IV SCH ×2 (04:32→15:01)
[2017-12-14] MEDS: HYDROmorphone INJ 0.5 MG/0.5 ML SYR IV PRN ×3 (06:05→23:13)
--- NOTE | 2017-12-14 06:43 | DIAGNOSTIC IMAGING REPORT ---
HEAD WITHOUT CONTRAST (CT) CT DOSE: HISTORY: Trauma. Mental status change. fall, head injury TECHNIQUE: Multiaxial CT images of the head were performed without the use of intravenous contrast. A dose lowering technique was utilized adhering to the principles of ALARA. Comparison: 08/23/2017 Findings: The paranasal sinuses and mastoid air cells are clear. The calvarium and skull base are intact. The ventricles and sulci are within normal limits. There is no mass, hematoma, midline shift, or acute infarct. Age-related chronic small vessel change and atrophy. Impression: No acute intracranial abnormality. Age-related change. No acute process. The above report was generated using voice recognition software. It may contain grammatical, syntax or spelling errors. Electronically signed by: Kieran Bangura M.D. 12/14/2017 6:41 AM Dictated Date/Time: 12/14/2017 6:40 AM
--- NOTE | 2017-12-14 06:46 | DIAGNOSTIC IMAGING REPORT ---
CERVICAL SPINE W/O CT DOSE: 1110.68 mGy.cm HISTORY: Trauma fall, head injury TECHNIQUE: Multiaxial CT images of the cervical spine were performed and reformatted in the sagittal and coronal plane without the use of contrast. A dose lowering technique was utilized adhering to the principles of ALARA. COMPARISON: 08/23/2017 FINDINGS: No fractures. No subluxation. Prevertebral soft tissues and the C1-C2 interval are intact. No pneumothorax. Severe degenerative changes throughout. Reversal of the normal cervical curvature. Osteopenia. Slight wedge deformity superior endplate T1 to be nonacute. Degenerative changes C1-C2 complex with no acute process. IMPRESSION: Considerable degenerative change. Muscular spasm. No acute process. The above report was generated using voice recognition software. It may contain grammatical, syntax or spelling errors. Electronically signed by: Kieran Bangura M.D. 12/14/2017 6:45 AM Dictated Date/Time: 12/14/2017 6:42 AM
--- NOTE | 2017-12-14 06:49 | DIAGNOSTIC IMAGING REPORT ---
CHEST ONE VIEW PORTABLE CLINICAL HISTORY: hip fx trauma COMPARISON STUDY: 08/23/2017 FINDINGS: Thoracic scoliosis. Mild stable cardiomegaly. Lungs are clear. Diaphragms are smooth. IMPRESSION: No acute process. Chronic change. The above report was generated using voice recognition software. It may contain grammatical, syntax or spelling errors. Electronically signed by: Kieran Bangura M.D. 12/14/2017 6:48 AM Dictated Date/Time: 12/14/2017 6:45 AM
--- NOTE | 2017-12-14 06:50 | DIAGNOSTIC IMAGING REPORT ---
R FEMUR 2 VIEWS ROUTINE CLINICAL HISTORY: right hip fx trauma. Pain. COMPARISON: None. DISCUSSION: Angled intertrochanteric fracture right hip. The remainder the femur is unremarkable. Moderate degenerative change of the acetabulum. Moderate soft tissue edema IMPRESSION: Angled intertrochanteric fracture right hip. The oblique component extends to the proximal medial femoral shaft. The above report was generated using voice recognition software. It may contain grammatical, syntax or spelling errors. Electronically signed by: Kieran Bangura M.D. 12/14/2017 6:49 AM Dictated Date/Time: 12/14/2017 6:48 AM
--- NOTE | 2017-12-14 06:51 | DIAGNOSTIC IMAGING REPORT ---
PELVIS 1 OR 2 VIEW ROUTINE CLINICAL HISTORY: RT HIP FX trauma. Pain. COMPARISON: 08/23/2017 DISCUSSION: Angled intertrochanteric fracture right hip. The oblique component extends to the medial aspect of the proximal femoral shaft. No evidence of dislocation. Moderate degenerative change of the hips bilaterally. There is no evidence for soft tissue swelling. IMPRESSION: Angled intertrochanteric fracture right hip. No evidence of dislocation. The above report was generated using voice recognition software. It may contain grammatical, syntax or spelling errors. Electronically signed by: Kieran Bangura M.D. 12/14/2017 6:50 AM Dictated Date/Time: 12/14/2017 6:49 AM
[2017-12-14] MEDS ORDERED: PNEUMOCOCCAL POLYSACCHARIDES 25 MCG/0.5 ML VIAL/SYR IM. ONE (08:00)
[2017-12-14] MEDS ORDERED: PNEUMOCOCCAL ADMINISTRATION CHARGE ONE (08:00)
--- NOTE | 2017-12-14 13:11 | Orthopedic Consultation ---
Orthopedic Consultation Date of Consultation: Dec 14, 2017. Attending Physician: Jace Concepcion D.O. Reason for Consultation: Right hip/femur fx History of Present Illness 72 y/o suffered a fall yesterday injuring his right hip. Xrays were obtained which showed a right intertroch/subtroch femur fx. He previously ambulated with assistive devices, lives alone, denies any pain in this right hip prior to this fall. He denies any other injuries. He did have a fall about a month ago as well. PMH/FH/SH/PSH and medications reviewed and please refer to h & p for completeness. Past Medical/Surgical History Medical Problems: (1) CHI (closed head injury) Status: Acute (2) Contusion of multiple sites Status: Acute (3) Fall Status: Acute (4) Femur fracture, right Status: Acute Family History Patient reports no known family medical history. Social History Smoking Status: Former Smoker Alcohol Use: none Drug Use: none Marital Status: single Housing Status: lives alone Occupation Status: disabled Allergies Coded Allergies: Morphine (Verified Adverse Reaction, Unknown, LOW BP, 12/14/17) Oxycodone (Verified Adverse Reaction, Unknown, INTOLERANCE PER DR NICHOLSON-- ELEVATED LIVER ENZYMES, 12/14/17) Home Medications Scheduled Levothyroxine Sodium (Synthroid), 75 MCG PO DAILY Tolnaftate (Tolnaftate), 1 APPLN TOP BID Scheduled PRN Ranitidine (Zantac), 75 MG PO DAILY PRN for HEARTBURN Current Inpatient Medications Current Inpatient Medications Medications (Trade) Dose Ordered Sig/Pam Route Start Time Stop Time Status Last Admin Dose Admin Acetaminophen (Tylenol Tab) 650 mg Q4H PRN PO 12/14/17 04:15 01/13/18 04:14 Al Hydrox/Mg Hydrox/Simethicone (Maalox Max Susp) 15 ml Q4H PRN PO 12/14/17 04:15 01/13/18 04:14 Magnesium Hydroxide (Milk Of Magnesia Susp) 30 ml Q6H PRN PO 12/14/17 04:15 01/13/18 04:14 Polyethylene (Miralax Powder Packet) 17 gm DAILY PRN PO 12/14/17 04:15 01/13/18 04:14 Ondansetron HCl (Zofran Inj) 4 mg Q6H PRN IV 12/14/17 04:15 01/13/18 04:14 Sodium Chloride 1,000 ml @ 100 mls/hr Q10H IV 12/14/17 04:15 01/13/18 04:14 12/14/17 04:32 100 MLS/HR Hydromorphone HCl (Dilaudid Inj) 0.3 mg Q3HWA PRN IV 12/14/17 05:45 12/28/17 05:44 12/14/17 09:06 0.3 MG Physical Exam Date Time Temp Pulse Resp B/P (MAP) Pulse Ox O2 Delivery O2 Flow Rate FiO2 12/14/17 08:10 Room Air 12/14/17 07:17 36.3 68 15 121/73 (89) 98 Room Air 12/14/17 05:15 36.8 96 16 165/88 (113) 96 Room Air 12/14/17 04:31 116/65 12/14/17 04:17 64 12 96 Room Air 12/14/17 04:11 114/63 12/14/17 04:09 Room Air 12/14/17 03:47 67 14 12/14/17 03:42 67 18 12/14/17 03:31 118/67 12/14/17 03:12 76 19 12/14/17 03:00 149/84 12/14/17 02:42 68 12 100 12/14/17 02:37 149/84 12/14/17 02:35 68 18 176/85 95 Room Air 12/14/17 02:04 77 14 100 12/14/17 01:59 75 16 12/14/17 01:29 71 12 93 Room Air 12/14/17 01:24 184/94 12/14/17 01:11 36.5 69 19 184/94 94 Room Air 12/14/17 01:08 65 12/14/17 01:02 184/94 Alert, oriented, but drowsy. He is in obvious pain at this time. No pain or tenderness of BUE or LLE. His right leg is shortened and externally rotated. Able to DF/PF, NVI. xrays show displaced intertroch/subtroch fx of right femur. Laboratory Results Last 24 Hours Test 12/14/17 01:36 12/14/17 01:45 White Blood Count 9.93 K/uL Red Blood Count 4.05 M/uL Hemoglobin 13.3 g/dL Hematocrit 38.9 % Mean Corpuscular Volume 96.0 fL Mean Corpuscular Hemoglobin 32.8 pg Mean Corpuscular Hemoglobin Concent 34.2 g/dl Platelet Count 202 K/uL Mean Platelet Volume 8.4 fL Neutrophils (%) (Auto) 86.1 % Lymphocytes (%) (Auto) 7.6 % Monocytes (%) (Auto) 4.7 % Eosinophils (%) (Auto) 0.5 % Basophils (%) (Auto) 0.1 % Neutrophils # (Auto) 8.55 K/uL Lymphocytes # (Auto) 0.75 K/uL Monocytes # (Auto) 0.47 K/uL Eosinophils # (Auto) 0.05 K/uL Basophils # (Auto) 0.01 K/uL RDW Standard Deviation 44.2 fL RDW Coefficient of Variation 12.7 % Immature Granulocyte % (Auto) 1.0 % Immature Granulocyte # (Auto) 0.10 K/uL Prothrombin Time 11.2 SECONDS Prothromb Time International Ratio 1.1 Activated Partial Thromboplast Time 23.2 SECONDS Partial Thromboplastin Ratio 0.9 Sodium Level 139 mmol/L Potassium Level 3.5 mmol/L Chloride Level 104 mmol/L Carbon Dioxide Level 28 mmol/L Anion Gap 7.0 mmol/L Blood Urea Nitrogen 21 mg/dl Creatinine 0.94 mg/dl Est Creatinine Clear Calc Drug Dose 61.1 ml/min Estimated GFR () 92.9 Estimated GFR (Non- 80.1 BUN/Creatinine Ratio 22.6 Random Glucose 113 mg/dl Calcium Level 8.2 mg/dl Urine Color YELLOW Urine Appearance CLEAR Urine pH 7.5 Urine Specific [place] 1.014 Urine Protein NEG Urine Glucose (UA) NEG Urine Ketones NEG Urine Occult Blood NEG Urine Nitrite NEG Urine Bilirubin NEG Urine Urobilinogen NEG Urine Leukocyte Esterase NEG Assessment & Plan Right displaced intertroch/subtroch femur fx. Plan. NPO. Plan for surgery today. IM nailing of right femur fx. Procedure explained including risks, benefits, alternatives to surgery and he wished to proceed. Consent obtained today. Bedrest for now.
[2017-12-14] MEDS ORDERED: MIDAZOLAM HCL 1 MG/ML 2ML VIAL ONE (14:59)
[2017-12-14] MEDS ORDERED: BUPIVACAINE 0.5 % 5 MG/1 ML PF 10ML VIAL ONE (15:41)
[2017-12-14] MEDS ORDERED: BUPIVACAINE/EPINEPHRINE 0.5% MPF 1:200,000 30 ML VIAL ONE (15:49)
[2017-12-14] MEDS ORDERED: CEFAZOLIN SOD 2000MG/15 ML IV PUSH IV ONE (16:13)
[2017-12-14] MEDS ORDERED: NURSING VERBAL MED ORDER ONE (16:30)
[2017-12-14] MEDS ORDERED: HYDROmorphone INJ 2 MG/ML SYR/VIAL IV PRN (16:45)
[2017-12-14] MEDS ORDERED: ATROPINE SULFATE 0.1 MG/ML 5ML SYR IV PRN (16:45)
[2017-12-14] MEDS ORDERED: PHENYLEPHRINE 100MCG/ML 5ML SYR IV PRN (16:45)
[2017-12-14] MEDS ORDERED: EpHEDrine SULFATE INJ 50 MG/ML AMP IV PRN (16:45)
[2017-12-14] MEDS ORDERED: PROPOFOL IV EMULSION 10 MG/ML 20 ML VIAL IV ONE (16:58)
[2017-12-14] MEDS ORDERED: LIDOCAINE HCL 2% 2 ML VIAL (20MG/ML) ONE (16:58)
--- NOTE | 2017-12-14 17:54 | [facility] Post Operative Brief Note ---
Immediate Operative Summary Operative Date Dec 14, 2017. Pre-Operative Diagnosis Right intertrochanteric / subtrochanteric femur fracture Post-Operative Diagnosis Same Procedure(s) Performed Right Long Trochanteric Nail Insertion Surgeon Dr Ramírez Cook Helper Preserves Surgeon(s) Moreno Kitchen PA-C Estimated Blood Loss 100ml Findings Consistent with Post-Op Diagnosis Fluids (cc crystalloids) 800 cc Specimens None Drains None Anesthesia Type Spinal MAC Complication(s) none Disposition Accompanied Pt To Recover: yes Disposition: Recovery Room / PACU
[2017-12-14] MEDS ORDERED: BISACODYL 10 MG SUPP PR PRN (18:00)
--- NOTE | 2017-12-14 18:20 | Anesthesiology Progress Note ---
Anesthesia Post Op Note Date & Time Dec 14, 2017 at 18:19 Vital Signs Pain Intensity: 0 Vital Signs Past 12 Hours Date Time Temp Pulse Resp B/P (MAP) Pulse Ox O2 Delivery O2 Flow Rate FiO2 12/14/17 18:15 74 13 141/88 100 Nasal Cannula 2 12/14/17 18:05 71 12 150/86 100 Oxymask 10 12/14/17 17:55 37.1 79 12 126/66 100 Oxymask 10 12/14/17 15:27 37.1 71 16 177/89 (118) 95 Room Air 12/14/17 15:14 36.6 70 22 96 Room Air 12/14/17 08:10 Room Air 12/14/17 07:17 36.3 68 15 121/73 (89) 98 Room Air Notes Mental Status: alert / awake / arousable, participated in evaluation Pt Amnestic to Procedure: Yes Nausea / Vomiting: adequately controlled Pain: adequately controlled Airway Patency, RR, SpO2: stable & adequate BP & HR: stable & adequate Hydration State: stable & adequate Anesthetic Complications: no major complications apparent
--- NOTE | 2017-12-14 19:11 | Family Medicine Progress Note ---
Progress Note Date of Service Dec 14, 2017. Subjective Pt evaluation today including: conversation w/ patient, physical exam, review of studies Pain: Moderate pain PO Intake: NPO for potential surgery today Voiding: hardy catheter in place Patient is resting in bed, appears uncomfortable. Reports he is in pain, but repeatedly states "I'm not addicted to any narcotics" and is hesitant to take them. Constitutional: No fever, No chills ENT: No hearing loss Respiratory: No cough Cardiovascular: No chest pain, No edema Abdomen: No pain, No nausea, No vomiting Musculoskeletal: + joint pain All Other Systems: Reviewed and Negative Medications Current Inpatient Medications Medications (Trade) Dose Ordered Sig/Pam Route Start Time Stop Time Status Last Admin Dose Admin Acetaminophen (Tylenol Tab) 650 mg Q4H PRN PO 12/14/17 04:15 01/13/18 04:14 Al Hydrox/Mg Hydrox/Simethicone (Maalox Max Susp) 15 ml Q4H PRN PO 12/14/17 04:15 01/13/18 04:14 Magnesium Hydroxide (Milk Of Magnesia Susp) 30 ml Q6H PRN PO 12/14/17 04:15 01/13/18 04:14 Polyethylene (Miralax Powder Packet) 17 gm DAILY PRN PO 12/14/17 04:15 01/13/18 04:14 Ondansetron HCl (Zofran Inj) 4 mg Q6H PRN IV 12/14/17 04:15 01/13/18 04:14 Sodium Chloride 1,000 ml @ 100 mls/hr Q10H IV 12/14/17 04:15 01/13/18 04:14 12/14/17 04:32 100 MLS/HR Hydromorphone HCl (Dilaudid Inj) 0.3 mg Q3HWA PRN IV 12/14/17 05:45 12/28/17 05:44 12/14/17 09:06 0.3 MG Objective Vital Signs Date Time Temp Pulse Resp B/P (MAP) Pulse Ox O2 Delivery O2 Flow Rate FiO2 12/14/17 08:10 Room Air 12/14/17 07:17 36.3 68 15 121/73 (89) 98 Room Air 12/14/17 05:15 36.8 96 16 165/88 (113) 96 Room Air 12/14/17 04:31 116/65 12/14/17 04:17 64 12 96 Room Air 12/14/17 04:11 114/63 12/14/17 04:09 Room Air 12/14/17 03:47 67 14 12/14/17 03:42 67 18 12/14/17 03:31 118/67 12/14/17 03:12 76 19 12/14/17 03:00 149/84 12/14/17 02:42 68 12 100 12/14/17 02:37 149/84 12/14/17 02:35 68 18 176/85 95 Room Air 12/14/17 02:04 77 14 100 12/14/17 01:59 75 16 12/14/17 01:29 71 12 93 Room Air 12/14/17 01:24 184/94 12/14/17 01:11 36.5 69 19 184/94 94 Room Air 12/14/17 01:08 65 12/14/17 01:02 184/94 Physical Exam General Appearance: WD/WN, + pertinent finding (uncomfortable from hip pain) Eyes: normal inspection, EOMI ENT: hearing grossly normal, + pertinent finding (upper right teeth missing; hx of oropharyngeal ca) Neck: no JVD, no carotid bruits, trachea midline Respiratory/Chest: chest non-tender, lungs clear, normal breath sounds, no respiratory distress, no accessory muscle use Cardiovascular: regular rate, rhythm, no edema, no murmur Abdomen: normal bowel sounds, non tender, soft Extremities: no pedal edema, no calf tenderness, + pertinent finding (R leg shortened and externally rotated) 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, no motor/sensory deficits, alert, oriented x 3 Skin: normal color Laboratory Results Last Resulted 12/14/17 01:36 Red Blood Count 4.05, Mean Corpuscular Volume 96.0, Mean Corpuscular Hemoglobin 32.8, Mean Corpuscular Hemoglobin Concent 34.2, Mean Platelet Volume 8.4, Neutrophils (%) (Auto) 86.1, Lymphocytes (%) (Auto) 7.6, Monocytes (%) (Auto) 4.7, Eosinophils (%) (Auto) 0.5, Basophils (%) (Auto) 0.1, Neutrophils # (Auto) 8.55, Lymphocytes # (Auto) 0.75, Monocytes # (Auto) 0.47, Eosinophils # (Auto) 0.05, Basophils # (Auto) 0.01 Last Resulted 12/14/17 01:36 Past 24 Hours Test 12/14/17 01:36 Range/Units Prothromb Time International Ratio 1.1 0.9-1.1 Prothrombin Time 11.2 9.0-12.0 SECONDS Assessment and Plan 72 year old male with a PMH of hypothyroidism and vertigo that presented after a fall and was found to have an intertrochanteric fracture of the R hip Intertrochanteric fracture of the R hip - Dr. Ramírez to take to OR today - NPO - Pain meds with -[id number]- -I-V- -[id number]-m-[id number]-g- -q-4-, dilauded 0.3mg q3hwa prn - Zofran IV prn nausea - IVF with 100 mls/hr - Fracture s/p fall from ~3 ft, likely related to osteoporosis. Will check Vit D level, if low will recommend bisphosphonates in 1 month from discharge Hypothyroidism - continue levothyroxine GERD - continue ranitidine DVTP: hold for surgeon to decide post-op Code: FULL Dispo: Med/surg Resident Physician Supervision Note: I interviewed and examined the patient. Discussed with Dr. Angulo and agree with findings and plan as documented in the note. Any exceptions or clarifications are listed here: None Documented By: Jace Concepcion feeling ok overall does have some hip pain difficult historian hunter noted nad breathing unlabored no pallor or icterus hip fx - presumed osteoporotic due to fall from seated - for OR, medically acceptable for surgery continue to follow closely, anticipate rehab needed follow blood counts for expected anemia Resident Tracking Resident Involvement: Resident Care Provided Care Provided: Adult Hospital Medicine
--- NOTE | 2017-12-14 19:33 | DIAGNOSTIC IMAGING REPORT ---
R HIP OR FILMS CLINICAL HISTORY: 72 years-old Male presenting with RT TROCH NAIL. TECHNIQUE: 4 fluoroscopic image(s) recorded as part of an intraoperative procedure. COMPARISON: Plain radiograph of the right femur performed the same day. FINDINGS/IMPRESSION: There has been interval intramedullary nail fixation of the right femoral neck and proximal metadiaphysis with a distal metaphyseal interlocking screw across the comminuted intertrochanteric fracture. No significant malalignment. The right femoral head appears congruent. Please see surgical report for further details. Fluoroscopy dosage (mGy): 16.15. Fluoroscopy time: 115.4 seconds. Number of fluoroscopic spot images: 0. Electronically signed by: Dexter Ely M.D. 12/14/2017 7:31 PM Dictated Date/Time: 12/14/2017 7:30 PM
[2017-12-14] MEDS: DOCUSATE SODIUM/SENNA 50/8.6MG TAB PO SCH (21:00)
--- NOTE | 2017-12-14 21:52 | OPERATIVE REPORT ---
DATE OF OPERATION: 12/14/2017 SURGEON: Dr. Remi Ramírez. LOCKSMITH APPRENTICE: ABIOLA Gleason PREOPERATIVE DIAGNOSIS: Right displaced intertrochanteric/subtrochanteric femur fracture. POSTOPERATIVE DIAGNOSIS: Right displaced intertrochanteric/subtrochanteric femur fracture. PROCEDURE PERFORMED: Right long cephalomedullary nailing of a right intertrochanteric/subtrochanteric fracture. COMPLICATIONS: None. ESTIMATED BLOOD LOSS: 100 mL FLUID REPLACEMENT: 800 mL of crystalloid fluid replacement. ANESTHESIA: Spinal. DRAINS: None. SPECIMENS: None. OPERATIVE INDICATIONS: Patient is a 72-year-old male who has had a history of several falls over the past couple months. Yesterday he sustained a fall and was unable to ambulate afterwards. He had acute onset of pain and discomfort in his right hip and thigh area. He was brought to Emergency Room. X-rays revealed displaced intertroch/subtroch fracture. He was admitted to the hospital by the hospitalist service and medically optimized. The patient indicated for surgical treatment. No prodromal hip pain. OPERATIVE IMPLANTS: Operative implants consisted of: 1. A Synthes right 380 x 11 mm long trochanteric nail. 2. A 105 mm helical blade. 3. A 5 x 44 mm distal interlocking screw. OPERATIVE PROCEDURE: Patient taken to the operating room, identified and placed on the operating table in supine position. All contact areas were appropriately padded. IV antibiotics were provided by anesthesia team. A spinal anesthetic had been implemented in the holding area. Cabrera catheter had been placed previously on the floor. Patient was then placed on the fracture table. His right leg was placed in boot traction, left leg was placed in a well leg garcia. X-ray was brought in. I did apply some longitudinal traction, was able to anatomically align his femur. It was a fairly comminuted fracture with extension down into the shaft. We got good alignment. Patient received 2 grams of IV Ancef and the right hip and the leg were then prepped and draped in usual sterile fashion. A curvilinear incision was made just proximal to tip of the greater trochanter. Sharp dissection was carried through subcutaneous tissue down to the level of the gluteal fascia. The gluteal fascia was incised longitudinally in line with skin incision. A guidewire was then placed just lateral to the tip of the greater trochanter on both AP and lateral planes and in line with femoral neck and femoral canal in both the AP and lateral planes. I advanced this down the canal under fluoroscopic guidance. I verified the position and then overreamed this with a 17 mm reamer. I then removed this guidewire and exchanged it for a ball tipped guidewire. I then measured for nail length and a 380 mm nail was selected. The guidewire was then overreamed with a 12 mm reamer and a380 x 11 mm right long trochanteric nail was then placed over the guidewire and tapped into position. The lateral aiming arm was placed. A stab incision was made and it was advanced to the lateral aspect of the femur. I made some slight adjustments to this, to get this in the ideal position in the central aspect of the femoral head in both AP and lateral planes. Once this was done, I measured for length and 105 mm blade was selected. I then overreamed the cortex with the cortical drill and the guidewire with the triple reamer set At 105. 105 mm helical blade was then attempted to be placed over the guidewire. However, we could not get this to go over the guidewire as it got jammed in the nail for some reason. We did loosen the set screw proximally to make sure that was not the issue and it would continue to get jammed in the nail. Therefore, we ended up opening up in another helical blade and placed over the guidewire without much difficulty. There must have been some defect in the helical blade. I then tightened the set screw proximally. The lateral aiming arm was removed and some final x-rays were obtained. Attention was then drawn toward distal interlocking. Using the perfect [place] technique, a distal interlocking screw was localized. A stab incision was made. I then drilled with the 4.0 mm drill bit in the dynamic hole at the distal aspect to allow dynamization. I then placed a 5 x 44 mm distal interlocking screw. Final x-rays were obtained. Attention was then drawn toward closing. All wounds were irrigated with copious amounts of normal saline. I did inject locally with 30 mL of 0.5% Marcaine with epinephrine. The gluteal fascia and IT band fascia both the proximal 2 incisions were closed with 0 Vicryl suture in a running fashion. The subcutaneous tissues of all wounds closed with 2-0 Dexon suture in a buried interrupted fashion. Skin was closed with skin jose francisco. Leg was then cleaned and dried and a sterile dressing with Xeroform, 4 x 4s, ABD pad and foam tape was applied. The patient was then taken off the fracture table and transferred to the recovery room in stable condition. The patient tolerated it well and there were no complications. All needle and sponge counts were correct at the end of the operation. I attest to the content of the Intraoperative Record and any orders documented therein. Any exceptions are noted below. FLACOD
[2017-12-15] VITALS (7 sets, daily range): BP systolic 102–159; BP diastolic 62–84; PULSE 68–94; TEMP 36.6–36.9; O2SAT 91–96
[2017-12-15] MEDS: CEFAZOLIN IV 1,000 MG in SYRINGE 0 ML IV SCH ×2 (00:14→08:19)
[2017-12-15] MEDS: HYDROmorphone INJ 2 MG/ML SYR/VIAL IV PRN ×2 (00:51→06:33)
[2017-12-15] MEDS: SODIUM CHLORIDE 0.9% 1000ML 1,000 ML IV SCH ×3 (05:12→20:59)
[2017-12-15] MEDS ORDERED: NURSING VERBAL MED ORDER ONE (07:15)
--- NOTE | 2017-12-15 08:18 | PROGRESS NOTE ---
DATE: 12/15/2017 SUBJECTIVE: A 72-year-old gentleman postop day 1 from IM nailing of a right intertroch/subtroch fracture. Seems to be doing okay. Some pain but seems to be manageable. Seems to be improved. He is kind of rambling this morning about various issues including medicines. Denies any chest pain or shortness of breath. No new aches or pains. OBJECTIVE: VITAL SIGNS: Temperature 36.9. Vital signs stable. Little bit hypertensive. PHYSICAL EXAMINATION: GENERAL: Shows a pleasant, thin elderly male. He is lying in bed. He looks reasonably comfortable. EXTREMITIES: Examination of the right leg reveals the leg to be aligned appropriately. Dressing is clean, dry, and intact. Not a lot of swelling. He can dorsiflex and plantarflex his foot appropriately. LABORATORY DATA: Labs are pending. ASSESSMENT: A 72-year-old gentleman postop day 1 from IM nailing of a right intertroch/subtroch fracture. Doing reasonably well. PLAN: 1. DVT prophylaxis. We would recommend thigh-high TEDs, SCDs, and aspirin 81 mg twice a day for 6 weeks. I do think this patient is at significant fall risk in the future. 2. PT/OT. He can fully weightbear right leg as tolerated. 3. Medical management as per the medicine service. 4. Disposition: He will likely need a rehab or long-term visit stay. As long as labs are okay, he is acceptable for discharge essentially any time medically stable. I need to see him back 2 weeks out from surgery. Any orthopedic questions can be directed at [phone].
[2017-12-15] MEDS: TRAMADOL HCL 50 MG TAB PO PRN ×2 (08:34→15:55)
[2017-12-15] MEDS ORDERED: ASPIRIN/ALUM/MAGNES/CAL CARB 325 MG TAB PO SCH (09:00)
[2017-12-15 09:02] LABS: CALCIUM 7.7 mg/dl (8.5-10.1); CREATININE 0.82 mg/dl (0.60-1.40); POTASSIUM 3.9 mmol/L (3.5-5.1)
[2017-12-15 09:05] LABS: HEMATOCRIT 29.5 % (42-52); HEMOGLOBIN 9.8 g/dL (14.0-18.0); MEAN CELL VOLUME 95.8 fL (80-100); MEAN CORPUSCULAR HEMOGLOBIN 31.8 pg (25-34); MEAN CORPUSCULAR HGB CONC 33.2 g/dl (32-36); MEAN PLATELET VOLUME 8.6 fL (7.4-10.4); PLATELET COUNT 202 K/uL (130-400); RED CELL DISTRIBUTION WIDTH CV 12.9 % (11.5-14.5); RED CELL DISTRIBUTION WIDTH SD 44.6 fL (36.4-46.3)
[2017-12-15 10:14] LABS: EOS % 0.1 %; EOS ABS # 0.01 K/uL (0-0.5); HEMATOCRIT 23.6 % (42-52); HEMOGLOBIN 7.8 g/dL (14.0-18.0); IG# 0.02 K/uL (0.00-0.02); LYMPH % 3.1 %; LYMPH ABS # 0.25 K/uL (1.2-3.4); MEAN CELL VOLUME 96.3 fL (80-100); MEAN CORPUSCULAR HEMOGLOBIN 31.8 pg (25-34); MEAN PLATELET VOLUME 8.1 fL (7.4-10.4); MONO % 9.6 %; MONO ABS # 0.78 K/uL (0.11-0.59); NEUT ABS # 7.04 K/uL (1.4-6.5); PLATELET COUNT 165 K/uL (130-400); RED CELL DISTRIBUTION WIDTH CV 12.8 % (11.5-14.5); RED CELL DISTRIBUTION WIDTH SD 44.9 fL (36.4-46.3)
[2017-12-15 10:19] LABS: MEAN CORPUSCULAR HGB CONC 33.1 g/dl (32-36)
[2017-12-15 10:42] LABS: CALCIUM 6.1 mg/dl (8.5-10.1); CREATININE 0.78 mg/dl (0.60-1.40); POTASSIUM 2.9 mmol/L (3.5-5.1)
[2017-12-15] MEDS ORDERED: SODIUM CHLORIDE 0.9% 1000ML 1,000 ML IV ONE (11:15)
--- NOTE | 2017-12-15 13:12 | Clinical Documentation Query ---
QUERY 1 OF [address] WITT, In your clinical opinion is this patient being managed for: ( ) Encephalopathy possibly due to prn pain medication ( x ) Metabolic Encephalopathy related to other factors (please specify) ( ) Not Agree ( ) Other explanation of clinical findings (Please Explain) ( ) Unable to determine (Please Define) ( ) Need to Discuss The medical record reflects the following clinical findings, treatment, and risk factors. Clinical Indicators: 72 yo male presenting with a fall and R hip fracture. Progress note on 12/15 indicates pt rambling at time of physician visit. Nursing note 12/15 indicates that change in pt condition (unresponsiveness) could possibly be related to the effects of prn analgesic. K 2.9, Cl 113, glucose POC 232. Treatment:1L NSS bolus, UA clean catch and culture Risk Factors: age, pain medication QUERY 2 OF 2 In your clinical opinion is this patient being managed for: ( x ) Acute blood loss anemia ( ) Not Agree ( ) Other explanation of clinical findings (Please Explain) ( ) Unable to determine (Please Define) ( ) Need to Discuss The medical record reflects the following clinical findings, treatment, and risk factors. Clinical Indicators: Pt with ground level fall. EBL of 100 cc. Presenting Hgb 13.3, Hct 38.9 which trended down to 7.8/23.6 Treatment: IV fluids, repeated CBC 2 hours after routine AM CBC Risk Factors: age, fall, surgical blood loss Please clarify and document your clinical opinion in the progress notes and discharge summary. Terms such as "probable", "suspected", "likely", "questionable", "possible", or "still to be ruled out" are acceptable. IF IN AGREEMENT, YOU MUST DOCUMENT ABOVE DIAGNOSTIC STATEMENT IN DAILY PROGRESS NOTES AND DISCHARGE SUMMARY. This document is not part of the patient's record. Thank You, Monica Duarte, AMAURY [phone]
--- NOTE | 2017-12-15 13:15 | Clinical Documentation Query ---
QUERY 1 OF 2 CLINICAL DOCUMENTATION QUERY , In your clinical opinion is this patient being managed for: ( x ) Encephalopathy possibly due to prn pain medication ( ) Metabolic Encephalopathy related to other factors (please specify) ( ) Not Agree ( ) Other explanation of clinical findings (Please Explain) ( ) Unable to determine (Please Define) ( ) Need to Discuss The medical record reflects the following clinical findings, treatment, and risk factors. Clinical Indicators: 72 yo male presenting with a fall and R hip fracture. Progress note on 12/15 indicates pt rambling at time of physician visit. Nursing note 12/15 indicates that change in pt condition (unresponsiveness) could possibly be related to the effects of prn analgesic. K 2.9, Cl 113, glucose POC 232. Treatment:1L NSS bolus, UA clean catch and culture Risk Factors: age, pain medication QUERY 2 OF 2 In your clinical opinion is this patient being managed for: ( ) Acute blood loss anemia ( ) Not Agree ( ) Other explanation of clinical findings (Please Explain) ( x ) Unable to determine (Please Define) ( ) Need to Discuss The medical record reflects the following clinical findings, treatment, and risk factors. Clinical Indicators: Pt with ground level fall. EBL of 100 cc. Presenting Hgb 13.3, Hct 38.9 which trended down to 7.8/23.6 Treatment: IV fluids, repeated CBC 2 hours after routine AM CBC Risk Factors: age, fall, surgical blood loss Please clarify and document your clinical opinion in the progress notes and discharge summary. Terms such as "probable", "suspected", "likely", "questionable", "possible", or "still to be ruled out" are acceptable. IF IN AGREEMENT, YOU MUST DOCUMENT ABOVE DIAGNOSTIC STATEMENT IN DAILY PROGRESS NOTES AND DISCHARGE SUMMARY. This document is not part of the patient's record. Thank You, Monica Duarte, AMAURY [phone]
[2017-12-15] MEDS: ACETAMINOPHEN 325 MG TAB PO SCH ×2 (15:29→20:58)
[2017-12-15] MEDS ORDERED: POTASSIUM CHLORIDE 20 MEQ TABCR PO ONE (20:30)
[2017-12-15] MEDS: DOCUSATE SODIUM/SENNA 50/8.6MG TAB PO SCH (20:59)
--- NOTE | 2017-12-15 21:12 | Family Medicine Progress Note ---
Progress Note Date of Service Dec 15, 2017. Subjective Pt evaluation today including: conversation w/ patient, physical exam, chart review, lab review Pain: Moderate post-operative pain Voiding: no voiding problems, requires PRN straight cath Patient moderately disoriented this AM Constitutional: No fever, No chills ENT: No hearing loss Respiratory: No cough, No wheezing, No shortness of breath, No dyspnea on exertion Abdomen: No pain, No nausea, No vomiting Musculoskeletal: + joint pain All Other Systems: Reviewed and Negative Medications Current Inpatient Medications Medications (Trade) Dose Ordered Sig/Pam Route Start Time Stop Time Status Last Admin Dose Admin Acetaminophen (Tylenol Tab) 650 mg Q4H PRN PO 12/14/17 04:15 01/13/18 04:14 Future Hold Al Hydrox/Mg Hydrox/Simethicone (Maalox Max Susp) 15 ml Q4H PRN PO 12/14/17 04:15 01/13/18 04:14 Magnesium Hydroxide (Milk Of Magnesia Susp) 30 ml Q6H PRN PO 12/14/17 04:15 01/13/18 04:14 Polyethylene (Miralax Powder Packet) 17 gm DAILY PRN PO 12/14/17 04:15 01/13/18 04:14 Ondansetron HCl (Zofran Inj) 4 mg Q6H PRN IV 12/14/17 04:15 01/13/18 04:14 Sodium Chloride 1,000 ml @ 100 mls/hr Q10H IV 12/14/17 04:15 01/13/18 04:14 12/15/17 12:41 100 MLS/HR Aspirin/Aluminum/ Magnesium/Ca Carb (Ascriptin Tab) 325 mg BID PO 12/15/17 09:00 01/14/18 08:59 12/15/17 08:20 325 MG Senna/Docusate Sodium (Senokot S Tab) 2 tab HS PO 12/14/17 21:00 01/13/18 20:59 Polyethylene (Miralax Powder Packet) 17 gm Q6 PO 12/16/17 06:00 01/15/18 05:59 Bisacodyl (Dulcolax Supp) 10 mg DAILY PRN MO 12/14/17 18:00 01/13/18 17:59 Hydromorphone HCl (Dilaudid Inj) 1 mg Q3HWA PRN IV 12/15/17 00:30 12/28/17 05:44 12/15/17 06:33 1 MG Tramadol HCl (Ultram Tab) Tramadol 50-100 mg tab PO ... Q6H PRN PO 12/15/17 07:30 01/14/18 07:29 12/15/17 15:55 50 MG Acetaminophen (Tylenol Tab) 650 mg Q4H PO 12/15/17 16:00 01/14/18 15:59 Objective Vital Signs Date Time Temp Pulse Resp B/P (MAP) Pulse Ox O2 Delivery O2 Flow Rate FiO2 12/15/17 14:52 36.8 76 16 136/80 (98) 95 Room Air 12/15/17 12:42 36.6 83 17 138/81 (100) 95 Room Air 12/15/17 11:40 83 14 117/68 (84) 95 Room Air 12/15/17 10:20 91 15 117/72 (87) 96 Room Air 12/15/17 08:00 Room Air 12/15/17 07:38 36.9 85 15 119/70 (86) 96 Room Air 12/15/17 04:00 36.9 94 18 159/84 (109) 91 Room Air 12/15/17 00:00 Nasal Cannula 2.0 12/14/17 22:45 36.7 74 16 147/76 (99) 99 Nasal Cannula 2.0 12/14/17 22:05 36.9 80 20 151/79 (103) 100 Nasal Cannula 2.0 12/14/17 21:23 36.7 73 160/77 (104) 100 Nasal Cannula 2.0 Physical Exam General Appearance: WD/WN, no apparent distress Eyes: EOMI ENT: hearing grossly normal Respiratory/Chest: lungs clear, normal breath sounds, no respiratory distress, no accessory muscle use Cardiovascular: regular rate, rhythm, no edema, no murmur Abdomen: non tender, soft Extremities: no pedal edema, no calf tenderness, + pertinent finding (wound CDI ) 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, normal mood/affect, + disoriented Skin: normal color Laboratory Results Last Resulted 12/15/17 10:05 Red Blood Count 2.45, Mean Corpuscular Volume 96.3, Mean Corpuscular Hemoglobin 31.8, Mean Corpuscular Hemoglobin Concent 33.1, Mean Platelet Volume 8.1, Neutrophils (%) (Auto) 87.0, Lymphocytes (%) (Auto) 3.1, Monocytes (%) (Auto) 9.6, Eosinophils (%) (Auto) 0.1, Basophils (%) (Auto) 0.0, Neutrophils # (Auto) 7.04, Lymphocytes # (Auto) 0.25, Monocytes # (Auto) 0.78, Eosinophils # (Auto) 0.01, Basophils # (Auto) 0.00 12/15/17 19:17 Last Resulted 12/15/17 10:05 Assessment and Plan 72 year old male with a PMH of hypothyroidism and vertigo that presented after a fall and was found to have an intertrochanteric fracture of the R hip Encephalopathy -?related to prn pain meds -Code richard called on patient this morning after he became lethargic, hypotensive, and tachycardic; did not require oxygen -Patient had been delirious prior to incident -Administered 1L fluid bolus. Hb had dropped from 9 to 7 back to 9; will monitor. Intertrochanteric fracture of the R hip - Pain meds with -y-p-u-t-a-n-y-l- -I-V- -2-5-m-c-g- -q-4-, dilauded 0.3mg q3hwa prn; tylenol scheduled q4h for 24 hours, then q6h - Zofran IV prn nausea - IVF with 100 mls/hr - Fracture s/p fall from ~3 ft, likely related to osteoporosis. Will check Vit D level, if low will recommend bisphosphonates in 1 month from discharge Hypothyroidism - continue levothyroxine GERD - continue ranitidine DVTP: aspirin 81 mg bid x 2 weeks, SCDs Code: FULL Dispo: Med/surg Resident Physician Supervision Note: I interviewed and examined the patient. Discussed with Dr. Angulo and agree with findings and plan as documented in the note. Any exceptions or clarifications are listed here: None Documented By: Jace Concepcion no meaningful HPI or ROS code richard called - was unresponsive but then wakes and is confused, nonsensical, but communicative (actually quite talkative but about random subjects/things) vitals noted nad breathing unlabored lungs cta b/l no r/r/w abd soft, no focal neuro deficits unresponsive - appearing due to metabolic encephalopathy - mixed inciting factors including age/hospitalization/requiring surgery/pain/pain meds. rescreen continually for any new factors - none at this time. no focal neuro deficits. hip fx due to osteoporosis - as above acute blood loss anemia due to hip fx - ongoing supportive care and vigilance Resident Tracking Resident Involvement: Resident Care Provided Care Provided: [facility]
[2017-12-15] MEDS: ASPIRIN 81 MG ECTAB PO SCH (21:56)
[2017-12-16] VITALS (7 sets, daily range): BP systolic 95–162; BP diastolic 55–91; PULSE 65–88; TEMP 36.5–37.4; O2SAT 93–97
[2017-12-16] MEDS: ACETAMINOPHEN 325 MG TAB PO SCH ×5 (04:33→18:35)
[2017-12-16] MEDS: SODIUM CHLORIDE 0.9% 1000ML 1,000 ML IV SCH ×2 (05:51→15:29)
[2017-12-16] MEDS: POLYETHYLENE (MIRALAX) 17 GM PACK PO SCH ×3 (05:52→18:35)
[2017-12-16 07:08] LABS: BASO % 0.1 %; BASO ABS # 0.01 K/uL (0-0.2); EOS % 0.8 %; EOS ABS # 0.06 K/uL (0-0.5); HEMATOCRIT 26.4 % (42-52); HEMOGLOBIN 8.9 g/dL (14.0-18.0); IG# 0.06 K/uL (0.00-0.02); LYMPH % 3.9 %; MEAN CORPUSCULAR HEMOGLOBIN 32.4 pg (25-34); MEAN CORPUSCULAR HGB CONC 33.7 g/dl (32-36); MEAN PLATELET VOLUME 8.5 fL (7.4-10.4); MONO % 8.5 %; MONO ABS # 0.65 K/uL (0.11-0.59); NEUT % 85.9 %; NEUT ABS # 6.61 K/uL (1.4-6.5); PLATELET COUNT 175 K/uL (130-400); RED CELL DISTRIBUTION WIDTH SD 44.8 fL (36.4-46.3); WHITE BLOOD COUNT 7.69 K/uL (4.8-10.8)
[2017-12-16 07:53] LABS: CALCIUM 7.5 mg/dl (8.5-10.1); CREATININE 0.87 mg/dl (0.60-1.40)
[2017-12-16] MEDS: ASPIRIN 81 MG ECTAB PO SCH (08:55)
--- NOTE | 2017-12-16 13:37 | PROGRESS NOTE ---
DATE: 12/16/2017 SUBJECTIVE: This is a 72-year-old gentleman, postop day 2 from IM nailing of a right intertroch/subtroch fracture. Seems to be doing okay. Seems a bit groggy and sedated this afternoon. Denies any significant pain. He has difficulty following commands. OBJECTIVE: VITAL SIGNS: Temperature 36.6. Vital signs stable. PHYSICAL EXAMINATION: GENERAL: Reveals a pleasant elderly male. He is lying in bed, looks a bit sedated. Follows some simple commands. EXTREMITIES: Examination of the right leg reveals the dressing to be clean, dry, and intact. He is neurologically stable. LABORATORY DATA: Hemoglobin 8.9. Hematocrit 26.4. Electrolytes are stable. Potassium is improved. ASSESSMENT: This is a 72-year-old gentleman, postop day 2 from IM nailing of a right intertroch/subtroch fracture, doing reasonably well. I do not think he might be overmedicated as he seems to be a bit somnolent and less responsive than usual. PLAN: 1. DVT prophylaxis including thigh high TEDs, SCDs, and would recommend 81 mg aspirin twice a day. 2. PT, OT. Can fully weightbear as tolerated. 3. Medical management as per the medicine service. 4. Disposition: He is orthopedically stable and acceptable for discharge any time if medically stable. I need to see him back 2 weeks after surgery. Any orthopedic questions can be directed at [phone].
[2017-12-16] MEDS ORDERED: LEVOTHYROXINE SODIUM INJ 50 MCG in SYRINGE 0 ML IV ONE (16:25)
--- NOTE | 2017-12-16 16:30 | Progress Note ---
Progress Note Date of Service Dec 16, 2017. Progress Note Assessed patient per nurse's request On arrival, pt was staring to left side, not responding to voice / name / pressure L upper extremity more rigid, R upper extremity flaccid Breathing nonlabored, no abdominal tenderness Discussed w/RN and Attending Dr Concepcion Will obtain a stat CT head w/out contrast to evaluate for bleed Transfer to Tele
--- NOTE | 2017-12-16 16:40 | DIAGNOSTIC IMAGING REPORT ---
HEAD WITHOUT CONTRAST (CT) CT DOSE: 614.27 mGy.cm HISTORY: Mental status change s/p hip surgery, less responsive, hx brain bleed TECHNIQUE: Multiaxial CT images of the head were performed without the use of intravenous contrast. A dose lowering technique was utilized adhering to the principles of ALARA. Comparison: 12/14/2017 Findings: The paranasal sinuses and mastoid air cells are clear. The calvarium and skull base are intact. The ventricles and sulci are within normal limits. There is no mass, hematoma, midline shift, or acute infarct. Impression: No acute intracranial abnormality. Age-related change. No change in the prior exam. The above report was generated using voice recognition software. It may contain grammatical, syntax or spelling errors. Electronically signed by: Kieran Bangura M.D. 12/16/2017 4:39 PM Dictated Date/Time: 12/16/2017 4:37 PM
--- NOTE | 2017-12-16 18:10 | Family Medicine Progress Note ---
Progress Note Date of Service Dec 16, 2017. Subjective Pt evaluation today including: physical exam, chart review, lab review, review of studies Pain: Patient denies pain PO Intake: Tolerating Voiding: no voiding problems Called to patient's bedside today by nurse with concerns from her and PT eval citing diminished use of right arm, perseverating of numbers, disorientation, swelling of right arm. Vital signs were WNL Additional Comments: Unable to assess ROS due to patient's altered mental status, however responds to his name and states he has no pain after asking on several occasions. Medications Current Inpatient Medications Medications (Trade) Dose Ordered Sig/Pam Route Start Time Stop Time Status Last Admin Dose Admin Acetaminophen (Tylenol Tab) 650 mg Q4H PRN PO 12/14/17 04:15 01/13/18 04:14 Future Hold Al Hydrox/Mg Hydrox/Simethicone (Maalox Max Susp) 15 ml Q4H PRN PO 12/14/17 04:15 01/13/18 04:14 Magnesium Hydroxide (Milk Of Magnesia Susp) 30 ml Q6H PRN PO 12/14/17 04:15 01/13/18 04:14 Polyethylene (Miralax Powder Packet) 17 gm DAILY PRN PO 12/14/17 04:15 01/13/18 04:14 Ondansetron HCl (Zofran Inj) 4 mg Q6H PRN IV 12/14/17 04:15 01/13/18 04:14 Sodium Chloride 1,000 ml @ 100 mls/hr Q10H IV 12/14/17 04:15 01/13/18 04:14 12/16/17 15:29 100 MLS/HR Senna/Docusate Sodium (Senokot S Tab) 2 tab HS PO 12/14/17 21:00 01/13/18 20:59 12/15/17 20:59 2 TAB Polyethylene (Miralax Powder Packet) 17 gm Q6 PO 12/16/17 06:00 01/15/18 05:59 12/16/17 11:29 17 GM Bisacodyl (Dulcolax Supp) 10 mg DAILY PRN [place] 12/14/17 18:00 01/13/18 17:59 Hydromorphone HCl (Dilaudid Inj) 1 mg Q3HWA PRN IV 12/15/17 00:30 12/28/17 05:44 12/15/17 06:33 1 MG Aspirin (Ecotrin Tab) 81 mg BID PO 12/15/17 21:00 01/14/18 08:59 12/16/17 08:55 81 MG Acetaminophen (Tylenol Tab) 650 mg Q6H PO 12/16/17 12:00 01/15/18 11:59 12/16/17 11:34 650 MG Levothyroxine Sodium (Synthroid Tab) 75 mcg DAILYBB PO 12/17/17 06:00 01/16/18 05:59 Objective Vital Signs Date Time Temp Pulse Resp B/P (MAP) Pulse Ox O2 Delivery O2 Flow Rate FiO2 12/16/17 17:29 37.4 84 22 152/77 (102) 94 Room Air 12/16/17 15:20 Room Air 12/16/17 15:20 117/73 (88) 12/16/17 15:02 36.5 69 14 95/55 (68) 93 Room Air 12/16/17 10:00 78 16 136/77 (96) 97 Room Air 12/16/17 08:00 Room Air 12/16/17 06:58 36.6 65 16 142/81 (101) 96 Room Air 12/15/17 23:10 Room Air 12/15/17 23:04 36.8 68 12 102/62 (75) 96 Room Air 12/15/17 20:00 Room Air Physical Exam General Appearance: WD/WN, no apparent distress Eyes: PERRL, EOMI ENT: hearing grossly normal Neck: no JVD, no carotid bruits, trachea midline Respiratory/Chest: chest non-tender, lungs clear, normal breath sounds, no respiratory distress, no accessory muscle use Cardiovascular: regular rate, rhythm, no edema, no murmur Abdomen: normal bowel sounds, non tender, soft Extremities: no pedal edema, no calf tenderness, + pertinent finding (Wound on R hip CDI, R leg tender to palpation. Right hand swollen and patient holding in tight grasp) Neurologic/Psychiatric: no motor/sensory deficits, alert, + disoriented, + pertinent finding (At time of examination, patient had no facial droop, was able to utilize and move right arm with distraction. Was not fully compliant with one step commands and perseverated repeating numbers upon any sort of questioning, consistent with post-operative metabolic encephalopathy.) Skin: normal color, warm/dry Laboratory Results Last Resulted 12/16/17 06:39 Red Blood Count 2.75, Mean Corpuscular Volume 96.0, Mean Corpuscular Hemoglobin 32.4, Mean Corpuscular Hemoglobin Concent 33.7, Mean Platelet Volume 8.5, Neutrophils (%) (Auto) 85.9, Lymphocytes (%) (Auto) 3.9, Monocytes (%) (Auto) 8.5, Eosinophils (%) (Auto) 0.8, Basophils (%) (Auto) 0.1, Neutrophils # (Auto) 6.61, Lymphocytes # (Auto) 0.30, Monocytes # (Auto) 0.65, Eosinophils # (Auto) 0.06, Basophils # (Auto) 0.01 Last Resulted 12/16/17 06:39 Assessment and Plan 72 year old male with a PMH of hypothyroidism and vertigo that presented after a fall and was found to have an intertrochanteric fracture of the R hip Encephalopathy -?related to prn pain meds -Seema ramos called on patient yesterday morning after he became lethargic, hypotensive, and tachycardic; did not require oxygen, vitals responded to 1L fluid bolus. Hb stable. -Patient remains disoriented. -Repeated CT head today, no change from admission, no acute pathology to explain symptoms. -Continue scheduled tylenol and avoid pain medications unless absolutely necessary -Urine appears clean, will monitor. Pt had 5 BM 2 days ago; will monitor. Intertrochanteric fracture of the R hip - Pain meds with -s-w-k-t-a-n-y-l- -I-V- -2-5-m-c-g- -q-4-, -k-x-r-a-u-d-e-d- -0-.-3-m-g- -q-3-h-w-a- -p-r-n-; tylenol scheduled q6h - Zofran IV prn nausea - IVF with 100 mls/hr - Fracture s/p fall from ~3 ft, likely related to osteoporosis. Vit D level of 20.9. Recommend bisphosphonates in 1 month from discharge Hypothyroidism - continue levothyroxine GERD - continue ranitidine DVTP: aspirin 81 mg bid x 2 weeks, SCDs Code: FULL Dispo: telemetry Resident Physician Supervision Note: I interviewed and examined the patient. Discussed with Dr. Angulo and agree with findings and plan as documented in the note. Any exceptions or clarifications are listed here: None Documented By: Jace Concepcion confused, talking mostly wtih repetitive numbers vitals noted nad breathing unlabored no pallor or icterus acute multifactorial metabolic encephalopathy - supportive care. later in the day there was a question of R arm weakness hence CT head which was fortunately ( and as expected) negative R arm off and on weakness and rigidity - continue clinical evaluations, no overt deformity, but if persists may need imaging to r/o subtle fx osteoporosis / osteoporotic hip fx - s/p surgery, PT/OT, vitamin D replacmenet, bisphosphonate in about a month DVT proph as above per ortho acute blood loss anemia - stabilized, related to hip fx Resident Tracking Resident Involvement: Resident Care Provided Care Provided: Adult Hospital Medicine
[2017-12-16] MEDS ORDERED: HYDROmorphone INJ 0.5 MG/0.5 ML SYR IV PRN (19:00)
[2017-12-17] VITALS (7 sets, daily range): BP systolic 146–164; BP diastolic 73–96; PULSE 66–88; TEMP 36.6–37.3; O2SAT 92–97
[2017-12-17] MEDS: SODIUM CHLORIDE 0.9% 1000ML 1,000 ML IV SCH ×3 (01:44→22:15)
[2017-12-17] MEDS ORDERED: PHARMACIST DISCHARGE MED REC CONSULT PRN (06:00)
--- NOTE | 2017-12-17 06:16 | Progress Note ---
Progress Note Date of Service Dec 17, 2017. Progress Note Was notified by RN about right sided weakness and garbled speech at 5.00 AM . Last known well time is uncertain. He was assessed at around 1630 and found to be staring to left side and not responding to name/pressure. Head CT was obtained at that time which was negative for intracranial bleed and [facility]. Was called after RN was concerned about right sided flaccidity and expressive aphasia. On exam: patient is alert , oriented X3 Right upper extremity flaccid with decreased sensation. motor strength 2/5 Left upper extremity strength 5/5 RLE s/p trochanteric nail insertion for intertrochanteric fracture expressive aphasia. A/P - Right upper extremity flaccidity likely sec to CVA - Head CT ordered again. 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
[2017-12-17] MEDS: POLYETHYLENE (MIRALAX) 17 GM PACK PO SCH ×4 (06:21→17:27)
[2017-12-17] MEDS: ACETAMINOPHEN 325 MG TAB PO SCH ×4 (06:21→17:27)
[2017-12-17] MEDS: LEVOTHYROXINE 75 MCG TAB PO SCH (06:22)
[2017-12-17 07:00] LABS: HEMOGLOBIN A1C 5.2 % (4.5-5.6)
[2017-12-17] MEDS: ASPIRIN 81 MG ECTAB PO SCH ×3 (09:00→21:47)
[2017-12-17] MEDS ORDERED: LEVOTHYROXINE SODIUM INJ 50 MCG in SYRINGE 0 ML IV SCH (09:00)
--- NOTE | 2017-12-17 09:14 | PROGRESS NOTE ---
DATE: 12/17/2017 SUBJECTIVE: A 72-year-old gentleman postop day 3 from IM nailing of a right intertroch/subtroch fracture. He is very lethargic yesterday, but he has been transferred now down to telemetry. He is more awake and alert this morning. He describes numbness in his left leg. That is his only real complaint, but he does not move his right arm. Denies any other localized pain. OBJECTIVE: VITAL SIGNS: Temperature 36.7. Vital signs stable. GENERAL: Physical examination shows a pleasant elderly male. He is sitting up in bed, looks reasonably comfortable. He does follow commands and talks, but takes some coaxing and urging. Certainly much more awake and alert than he was yesterday. EXTREMITIES: Examination of the right hip reveals the dressing to be clean, dry and intact. The leg is well aligned. He has got pain with any type of hip or leg motion. Already, he does dorsiflex and plantarflex his foot appropriately. Examination of the right arm reveals a flaccid right arm. He does not move it and says he cannot move it. His other extremities, he can move. He can move his left leg appropriately. He has got no pain with hip or leg motion on the left side. LABORATORY DATA: Hemoglobin 8.9, hematocrit 26.4. Electrolytes are stable. IMAGING DATA: CT scan of the head was negative. ASSESSMENT: A 72-year-old gentleman postop day 3 from a right hip IM nailing with what looks to be a likely stroke affecting his right upper extremity and causing his flaccid weakness. This is a new finding on exam. Yesterday's exam was extremely limited by his altered mental status. PLAN: At this point. He can weightbear as tolerated in the right leg. I would recommend just further medical management workup for the stroke. Likely need a neurological consult. From the orthopedic standpoint, there is no further intervention warranted. Any anticoagulation necessary is appropriate if needed. Any orthopedic questions can be directed to me at [phone]. There does not appear to be any new orthopedic issues, but this upper extremity weakness certainly needs further workup.
--- NOTE | 2017-12-17 09:22 | Family Medicine Progress Note ---
Progress Note Date of Service Dec 17, 2017. Subjective Pt evaluation today including: conversation w/ patient Found patient sitting up, makes good eye contact, answering questions but does not volunteer any information. Says that he "feels dehydrated" when asked how he's doing. Says his right hip is not painful or bothering him. Says that his right upper arm weakness feels worse to him this morning than before but denies any arm pain. No other noted patient concerns. Constitutional: No fever Respiratory: No cough, No shortness of breath Cardiovascular: + edema, No chest pain Abdomen: No pain, No nausea Neurologic: + weakness Medications Current Inpatient Medications Medications (Trade) Dose Ordered Sig/Pam Route Start Time Stop Time Status Last Admin Dose Admin Acetaminophen (Tylenol Tab) 650 mg Q4H PRN PO 12/14/17 04:15 01/13/18 04:14 Future Hold Al Hydrox/Mg Hydrox/Simethicone (Maalox Max Susp) 15 ml Q4H PRN PO 12/14/17 04:15 01/13/18 04:14 Magnesium Hydroxide (Milk Of Magnesia Susp) 30 ml Q6H PRN PO 12/14/17 04:15 01/13/18 04:14 Polyethylene (Miralax Powder Packet) 17 gm DAILY PRN PO 12/14/17 04:15 01/13/18 04:14 Ondansetron HCl (Zofran Inj) 4 mg Q6H PRN IV 12/14/17 04:15 01/13/18 04:14 Sodium Chloride 1,000 ml @ 100 mls/hr Q10H IV 12/14/17 04:15 01/13/18 04:14 12/17/17 01:44 100 MLS/HR Senna/Docusate Sodium (Senokot S Tab) 2 tab HS PO 12/14/17 21:00 01/13/18 20:59 12/15/17 20:59 2 TAB Polyethylene (Miralax Powder Packet) 17 gm Q6 PO 12/16/17 06:00 01/15/18 05:59 12/17/17 06:21 17 GM Bisacodyl (Dulcolax Supp) 10 mg DAILY PRN ND 12/14/17 18:00 01/13/18 17:59 Aspirin (Ecotrin Tab) 81 mg BID PO 12/15/17 21:00 01/14/18 08:59 12/16/17 08:55 81 MG Acetaminophen (Tylenol Tab) 650 mg Q6H PO 12/16/17 12:00 01/15/18 11:59 12/17/17 06:21 650 MG Levothyroxine Sodium (Synthroid Tab) 75 mcg DAILYBB PO 12/17/17 06:00 01/16/18 05:59 12/17/17 06:22 75 MCG Hydromorphone HCl (Dilaudid Inj) 0.25 mg Q6 PRN IV 12/16/17 19:00 12/28/17 05:44 Miscellaneous Information (Pharmacist Discharge Med Rec Consult) 1 ea UD PRN N/A 12/17/17 06:00 01/16/18 05:59 Objective Vital Signs Date Time Temp Pulse Resp B/P (MAP) Pulse Ox O2 Delivery O2 Flow Rate FiO2 12/17/17 07:59 36.7 76 18 155/88 (110) 96 Room Air 12/17/17 03:45 36.8 77 18 164/88 (113) 93 Room Air 12/17/17 00:04 37.0 75 19 146/73 (97) 93 Room Air 12/16/17 23:45 Room Air 12/16/17 20:00 95 Room Air 2.0 12/16/17 19:19 36.9 88 20 162/91 (114) 95 Room Air 12/16/17 17:29 37.4 84 22 152/77 (102) 94 Room Air 12/16/17 15:20 Room Air 12/16/17 15:20 117/73 (88) 12/16/17 15:02 36.5 69 14 95/55 (68) 93 Room Air 12/16/17 10:00 78 16 136/77 (96) 97 Room Air Physical Exam Notes: General Appearance: Awake, alert, answering questions. Knows , "[employer]" but thought he was in a high school ([employer]), unaware of date, follows commands, appears in NAD. CV: +S1S2 RRR, no murmur. No peripheral edema. Pulm: Clear to auscultation throughout. Abdomen: +BS, soft, non-tender, non-distended. Extremities: No pedal edema or calf tenderness. SCD's in place. Two lateral right femur bandages, each c/d/i. Right arm is cool to touch with some hand edema. 2+ radial pulse. Neuro: Symmetrical facial expression. Has some mild difficulty initiating words with some slurring but is understandable. Right arm will barely lift against gravity. 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 Cannot localize light touch (says thumb is middle finger but gets little finger correct) on right side. Right toes wiggle and somewhat stronger attempted plantarflexion. Left arm full ROM and normal strength distally. Left plantarflexion intact. [On later exam around noon, attending states that the patient has a slight right facial droop that was not present on previous exams.] Lines: PIV. Laboratory Results Test 12/17/17 06:33 Estimated Average Glucose 103 mg/dl Hemoglobin A1c 5.2 % (4.5-5.6) Assessment and Plan 72 year old male with a PMH of hypothyroidism and vertigo that presented after a fall and was found to have an intertrochanteric fracture of the right hip Encephalopathy: Possibly related to prn pain meds. Issues with lethargy yesterday but greatly improved this morning. -- Continue scheduled tylenol and avoid pain medications unless absolutely necessary. -- Urine appears clean, will monitor. Intertrochanteric fracture of the right hip: S/p fall, now POD#3. See related ortho note. Recommended WBAT and no further ortho workup. - Pain meds with tylenol scheduled q6h. Zofran IV prn nausea. -- Fracture s/p fall from ~3 ft, likely related to osteoporosis. Vit D level of 20.9, so started on Vitamin D today. Recommend bisphosphonates in 1 month from discharge Acute CVA and right upper extremity weakness: Overnight concerns for worsening right upper extremity weakness. Repeat CT of head was unremarkable, however MRI this morning noted evidence of numerous tiny foci suggestive of acute to subacute ischemia. One of these areas within the left posterior parietal cortex may be the source of the patient's right upper extremity acute weakness. Furthermore, MRI suggested loss of left internal carotid artery flow (but collateral flow through the [place]). A bilateral carotid ultrasound was ordered for further differentiation. - Arm also feels cool to touch, though has a good radial pulse. RUE u/s is pending. - Given recent fall, ordered XR of left shoulder and humerus which showed no evidence of fracture or dislocation. - Speech swallow evaluation obtained. Nursing reports, patient did tolerate slippery diet and thin liquids. - Rechecking lipids. - Formal neuro consult pending. Anemia: Due to acute blood loss from hip fracture. Low Hb 7.8, up to 8.9 now. Monitoring. Hypothyroidism: Continue home levothyroxine. GERD: Held home ranitidine on admit. DVT: aspirin 81 mg bid x 2 weeks, SCDs Code: FULL Dispo: telemetry. Will very likely need acute inpatient rehab (See PT recommendation). Resident Physician Supervision Note: I interviewed and examined the patient. Discussed with Dr. Pina and agree with findings and plan as documented in the note. Any exceptions or clarifications are listed here: None Documented By: Jace Concepcion events of overnight noted nursing notes new facial droop - when i see pt does have R facial droop that's new he is now awake and alert, doesn't entirely remember what's happened but is more coherent than he's been during his stay vitals noted R sided subtle facial droop, fairly weak flacid R arm different than before (new flaccid, new severity of weakness) MRI noted, films personally reviewed acute CVA - totally occluded carotid, so almost certainly intracranial atherosclerosis. can't have tPA for multiple reasons, already on asa preceding stroke. suspect new over last ~12hrs since facial droop new and R arm weakness entirely different than yesterday. check lipids but last lipids low enough to risk ICH w statin (and he's had prior ICH) follow BP. osteoporotic hip fx w D deficiency and acute blood loss anemia -- overall stable PT/OT Resident Tracking Resident Involvement: Resident Care Provided Care Provided: Adult Hospital Medicine (inpatient)
[2017-12-17] MEDS ORDERED: ERGOCALCIFEROL 50,000 INTER.UNIT CAP PO SCH (10:15)
--- NOTE | 2017-12-17 11:10 | DIAGNOSTIC IMAGING REPORT ---
MRI OF THE BRAIN COMBO CLINICAL HISTORY: Strokelike symptoms. COMPARISON STUDY: CT of the brain dated 12/16/2017. MRI of the brain dated 12/04/2008. TECHNIQUE: MRI of the brain was performed utilizing various T1 and T2-weighted sequences in the axial, sagittal, and coronal planes. Contrast-enhanced sequences were acquired following the administration of 6.8 cc of Gadavist. FINDINGS: Brain parenchyma: There are age-related involutional changes noting mild subcortical and periventricular microangiopathic disease. There are numerous tiny foci of restricted diffusion identified involving the high left posterior parietal cortex and subcortical white matter measuring up to 7 mm. These are consistent with foci of acute to subacute ischemia. Additional punctate foci are suggested in the left frontal white matter on image #15. There is no hemorrhage or mass effect. No enhancing mass lesion is identified on the postcontrast images. [place]arrido-white matter differentiation is preserved. No extra-axial fluid collection is seen. The cerebellar tonsils are normal in configuration. Ventricles, sulci, and cisterns: Prominent secondary to involutional change. Pituitary and sella: Unremarkable. Intracranial vasculature: There is loss of the left internal carotid artery flow void at the skull base. This is restored at the [place]. The remaining flow voids of the skull base are patent. Orbits: The bony orbits are grossly intact. Orbital contents are normal in appearance. Sinuses and mastoids: Clear. Calvarium: Unremarkable. Cervical cord: Partially visualized cervical spinal cord is normal in morphology and signal intensity. IMPRESSION: 1. There are numerous tiny foci of restricted diffusion identified within the left posterior parietal cortex and subcortical white matter consistent with acute to subacute ischemia. Tiny foci ischemia are also suggested in the left frontal white matter. 2. There is no hemorrhage, mass effect, or enhancing mass lesion. 3. There is loss of the left internal carotid artery flow void at the skull base, likely representing thrombosis of this vessel. There is mandaeism of the left internal carotid artery flow void at the [place]. Electronically signed by: Uzair Crowe M.D. 12/17/2017 11:09 AM Dictated Date/Time: 12/17/2017 11:01 AM
--- NOTE | 2017-12-17 11:58 | DIAGNOSTIC IMAGING REPORT ---
CT SCAN OF THE BRAIN WITHOUT IV CONTRAST CLINICAL HISTORY: Right-sided weakness. COMPARISON STUDY: CT of the brain dated 12/16/2017. MRI of the brain performed the same day 12/17/2017. TECHNIQUE: Unenhanced axial CT scan of the brain is performed from the vertex to the skull base. A dose lowering technique was utilized adhering to the principles of ALARA. CT DOSE: 691.05 mGy.cm FINDINGS: Brain parenchyma: There are age-related involutional changes noting mild subcortical and periventricular microangiopathic change. There is no hemorrhage, mass effect, or evidence of acute territorial ischemia by CT criteria. [place]ido-white matter is preserved. No extra-axial fluid collection is seen. Mineralization is noted in the basal ganglia. Ventricles, sulci, cisterns: Prominent secondary to involutional change. Intracranial vasculature: There is minimal atherosclerotic calcification of the cavernous carotid arteries. Calvarium: Unremarkable. Sinuses and mastoids: The visualized paranasal sinuses are clear. The mastoid air cells are well pneumatized. Orbits: The bony orbits are grossly intact. IMPRESSION: 1. There is no hemorrhage, mass effect, or evidence of acute territorial ischemia by CT criteria. 2. Tiny foci of acute to subacute ischemia seen on today's MRI are not apparent by CT. Electronically signed by: Uzair Crowe M.D. 12/17/2017 11:56 AM Dictated Date/Time: 12/17/2017 11:54 AM
--- NOTE | 2017-12-17 12:02 | DIAGNOSTIC IMAGING REPORT ---
RIGHT SHOULDER 3 VIEWS; RIGHT HUMERUS 2 VIEWS CLINICAL HISTORY: Right shoulder pain. Recent fall. FINDINGS: 3 views of the right shoulder with AP and lateral views of the right humerus are obtained. Correlation is made with right shoulder radiographs dated 01/23/2016. The skeletal structures are osteopenic. There is no radiographic evidence of right shoulder fracture or dislocation. Mild degenerative change and erosion is suggested at the the acromioclavicular joint. The glenohumeral articulation is maintained noting advanced degenerative change and sclerosis. Degenerative sclerosis and subchondral cyst formation are noted in the greater tuberosity of the humeral head. Large spurs arise from the inferior aspect of the humeral head. There is no radiographic evidence of right humeral fracture. The right elbow joint is grossly maintained. Large enthesophytes arising the lateral humeral epicondyle. Mild soft tissue swelling overlies the shoulder. The visualized right lung parenchyma is grossly clear. Advanced degenerative change and scoliosis are noted in the partially imaged thoracic spine. IMPRESSION: 1. There is no radiographic evidence of right shoulder fracture or dislocation. 2. There is no radiographic evidence of right humeral fracture. 3. Osteopenia and degenerative change as above. Electronically signed by: Uzair Crowe M.D. 12/17/2017 12:01 PM Dictated Date/Time: 12/17/2017 11:57 AM
--- NOTE | 2017-12-17 12:25 | DIAGNOSTIC IMAGING REPORT ---
ULTRASOUND RIGHT UPPER EXTREMITY ARTERIAL CLINICAL HISTORY: Right arm weakness. Swelling and coldness in the right arm. COMPARISON STUDY: No priors. TECHNIQUE: Real-time, grayscale, and color Doppler sonography of the arteries of the right upper extremity is performed. FINDINGS: No significant atherosclerotic plaque is identified throughout the arteries of the right upper extremity. The right common carotid artery is patent with normal internal waveforms and velocities measuring up to 82 cm/s. The right vertebral artery is patent with normal direction of flow with velocities measuring up to 52 cm/s. The right subclavian artery is patent with velocities measuring up to 64 cm/s. Right axillary artery is patent with velocities measuring up to 70 cm/s. The brachial arteries are patent with normal arterial waveforms. Mildly elevated velocities are seen within the proximal right brachial artery measuring up to 223 cm/s. The mid to distal brachial arteries are patent with normal velocities. These measure up to 92 cm/s. The radial and ulnar arteries are patent with normal arterial waveforms. Velocities measure up to 77 cm/s. IMPRESSION: There is no sonographic evidence of high-grade stenosis or focal vessel cut off throughout the arteries of the right upper extremity. See above. Dictated: 12/17/2017 11:48 AM Transcribed: 12/17/2017 12:24 PM [email or web address] Electronically signed by: Uzair Crowe M.D. 12/17/2017 12:39 PM Dictated Date/Time: 12/17/2017 11:48 AM
--- NOTE | 2017-12-17 15:39 | DIAGNOSTIC IMAGING REPORT ---
ULTRASOUND OF THE CAROTID ARTERIES CLINICAL HISTORY: Stroke. Left carotid occlusion seen by MRI. COMPARISON STUDY: CT of the neck dated 01/14/2009. MRI of the brain performed the same day 12/17/2017. TECHNIQUE: Real-time, grayscale, and color Doppler sonography of the carotid arteries is performed. Images are reviewed in the transverse and longitudinal planes. FINDINGS: Blood pressure in the right arm measures 136/84 and blood pressure in the left arm measures 172/92. The common carotid arteries are patent bilaterally, as is the right internal carotid artery. The left internal carotid artery is occluded. There is mild atherosclerotic plaque identified. Normal doppler arterial waveforms are seen throughout. Velocity measurements are listed below. Common carotid peak systolic velocity (cm/sec): RIGHT: 78 LEFT: 3.9 ICA proximal peak systolic velocity (cm/sec): RIGHT: 49 LEFT: XX ICA mid peak systolic velocity (cm/sec): RIGHT: 88 LEFT: XX ICA distal peak systolic velocity (cm/sec): RIGHT: 69 LEFT: XX ICA/CC peak systolic ratio: RIGHT: 1.1 LEFT: XX Antegrade flow was shown in the vertebral arteries. The external carotid arteries are patent. IMPRESSION: 1. The left common carotid artery is patent. 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 There is no sonographic evidence of hemodynamically significant stenosis in the right carotid arterial system. 3. Antegrade flow is shown in the vertebral arteries. Electronically signed by: Uzair Crowe M.D. 12/17/2017 3:38 PM Dictated Date/Time: 12/17/2017 3:35 PM
[2017-12-17] MEDS: DOCUSATE SODIUM/SENNA 50/8.6MG TAB PO SCH ×2 (21:47→21:48)
[2017-12-18] VITALS (8 sets, daily range): BP systolic 128–149; BP diastolic 77–90; PULSE 70–86; TEMP 36.7–37.2; O2SAT 93–98; Ht 177.8 cm; Wt 72.6 kg
[2017-12-18] MEDS: POLYETHYLENE (MIRALAX) 17 GM PACK PO SCH
[2017-12-18] MEDS: ACETAMINOPHEN 325 MG TAB PO SCH ×5 (00:33→23:55)
[2017-12-18] MEDS ORDERED: NURSING VERBAL MED ORDER ONE (02:30)
[2017-12-18] MEDS: LEVOTHYROXINE 75 MCG TAB PO SCH (06:01)
[2017-12-18 06:24] LABS: EOS % 1.3 %; EOS ABS # 0.09 K/uL (0-0.5); HEMATOCRIT 25.1 % (42-52); HEMOGLOBIN 8.4 g/dL (14.0-18.0); IG# 0.08 K/uL (0.00-0.02); LYMPH % 7.7 %; LYMPH ABS # 0.53 K/uL (1.2-3.4); MEAN CELL VOLUME 95.4 fL (80-100); MEAN CORPUSCULAR HEMOGLOBIN 31.9 pg (25-34); MEAN CORPUSCULAR HGB CONC 33.5 g/dl (32-36); MEAN PLATELET VOLUME 8.3 fL (7.4-10.4); MONO % 7.7 %; MONO ABS # 0.53 K/uL (0.11-0.59); NEUT % 82.1 %; NEUT ABS # 5.69 K/uL (1.4-6.5); PLATELET COUNT 201 K/uL (130-400); RED CELL DISTRIBUTION WIDTH CV 13.1 % (11.5-14.5); WHITE BLOOD COUNT 6.92 K/uL (4.8-10.8)
[2017-12-18 07:09] LABS: CALCIUM 7.4 mg/dl (8.5-10.1); CREATININE 0.53 mg/dl (0.60-1.40); POTASSIUM 3.6 mmol/L (3.5-5.1)
--- NOTE | 2017-12-18 08:24 | PROGRESS NOTE ---
DATE: 12/18/2017 SUBJECTIVE: A 72-year-old gentleman postop day 4 from IM nailing of right intertroch/subtroch fracture. He is doing much better today. Much more awake and alert. Still has no function of his right arm. No new complaints of pain. Continues to describe some numbness in his legs, but they seemed to be working okay. OBJECTIVE: VITAL SIGNS: Temperature 37.2. Stable. GENERAL: Examination shows a pleasant middle-aged male. He is sitting up in bed and eating breakfast. He is awake, alert, oriented, and completely appropriate. Mentally he seems back to baseline. EXTREMITIES: Examination of the right hip and leg reveals the dressing to be clean, dry, and intact. He can dorsiflex and plantarflex his feet on both sides. He still has no significant motor or sensory functional use of his right upper extremity which is flaccid. LABORATORY DATA: Hemoglobin 8.4. Hematocrit 25.1. Electrolytes are stable. ASSESSMENT: A 72-year-old gentleman postop day 4 from intramedullary nailing of a right intertroch/subtroch fracture. Clinically, certainly seemed to have had a stroke affecting his right upper extremity, which I think would be consistent with MRI findings of his brain. Neurology consult is pending. Mentally, he seems to be back to baseline. PLAN: 1. DVT prophylaxis including thigh high TEDs, SCDs, and aspirin or any other anticoagulation indicated for his stroke. 2. He can continue PT/OT. He can weightbear as tolerated, right lower extremity. 3. Medical and neurological managements as per the medicine and neurology services. 4. Disposition: He will likely need a rehab stay. Certainly, he needs treatment for this acute stroke. Any orthopedic questions can be directed at [phone]. No current indication for any further orthopedic needs at this time other than rehab.
[2017-12-18] MEDS: SODIUM CHLORIDE 0.9% 1000ML 1,000 ML IV SCH ×2 (09:11→18:32)
--- NOTE | 2017-12-18 09:11 | Family Medicine Progress Note ---
Progress Note Date of Service Dec 18, 2017. Subjective Pt evaluation today including: conversation w/ patient Found patient sitting up and eating some breakfast with his left hand. Says that his entire right arm now feels completely numb, but has some feeling in the right leg. Denies any focal pains, including in his right hip, or any other acute concerns. Does not volunteer much information, though. Constitutional: No fever, No chills Respiratory: No cough, No shortness of breath Cardiovascular: + edema (right leg), No chest pain Abdomen: No pain, No nausea, No vomiting Neurologic: + weakness, + numbness/tingling, + problem reported (aphasia) Medications Current Inpatient Medications Medications (Trade) Dose Ordered Sig/Pam Route Start Time Stop Time Status Last Admin Dose Admin Acetaminophen (Tylenol Tab) 650 mg Q4H PRN PO 12/14/17 04:15 01/13/18 04:14 Future Hold Al Hydrox/Mg Hydrox/Simethicone (Maalox Max Susp) 15 ml Q4H PRN PO 12/14/17 04:15 01/13/18 04:14 Magnesium Hydroxide (Milk Of Magnesia Susp) 30 ml Q6H PRN PO 12/14/17 04:15 01/13/18 04:14 Polyethylene (Miralax Powder Packet) 17 gm DAILY PRN PO 12/14/17 04:15 01/13/18 04:14 Ondansetron HCl (Zofran Inj) 4 mg Q6H PRN IV 12/14/17 04:15 01/13/18 04:14 Sodium Chloride 1,000 ml @ 100 mls/hr Q10H IV 12/14/17 04:15 01/13/18 04:14 12/17/17 22:15 100 MLS/HR Senna/Docusate Sodium (Senokot S Tab) 2 tab HS PO 12/14/17 21:00 01/13/18 20:59 12/17/17 21:48 2 TAB Bisacodyl (Dulcolax Supp) 10 mg DAILY PRN [place] 12/14/17 18:00 01/13/18 17:59 Aspirin (Ecotrin Tab) 81 mg BID PO 12/15/17 21:00 01/14/18 08:59 12/17/17 21:47 81 MG Acetaminophen (Tylenol Tab) 650 mg Q6H PO 12/16/17 12:00 01/15/18 11:59 12/18/17 06:01 650 MG Levothyroxine Sodium (Synthroid Tab) 75 mcg DAILYBB PO 12/17/17 06:00 01/16/18 05:59 12/18/17 06:01 75 MCG Hydromorphone HCl (Dilaudid Inj) 0.25 mg Q6 PRN IV 12/16/17 19:00 12/28/17 05:44 Miscellaneous Information (Pharmacist Discharge Med Rec Consult) 1 ea UD PRN N/A 12/17/17 06:00 01/16/18 05:59 Cholecalciferol (Vitamin D Tab) 2,000 inter.unit QAM PO 12/18/17 09:00 01/17/18 08:59 Ergocalciferol (Vitamin D Cap) 50,000 interunit Sa@0900 PO 12/17/17 10:15 01/16/18 10:14 12/17/17 12:37 50,000 INTERUNIT Objective Vital Signs Date Time Temp Pulse Resp B/P (MAP) Pulse Ox O2 Delivery O2 Flow Rate FiO2 12/18/17 07:25 37.1 77 20 149/77 (101) 94 Room Air 12/18/17 04:00 Room Air 12/18/17 03:06 37.2 86 18 128/89 (102) 93 Room Air 12/18/17 00:02 Room Air 12/17/17 23:36 37.2 88 18 146/96 (113) 92 Room Air 12/17/17 20:22 37.3 79 19 161/80 (107) 96 Room Air 12/17/17 20:00 Room Air 12/17/17 16:00 Room Air 12/17/17 15:07 36.6 68 19 152/79 (103) 97 Room Air 12/17/17 13:20 37.0 66 18 154/83 (106) 96 Room Air 12/17/17 12:00 Room Air 12/17/17 10:00 Room Air Physical Exam Notes: General Appearance: Awake, alert, answering questions, appears in NAD. CV: +S1S2 RRR, no murmur. No peripheral edema. Pulm: Clear to auscultation throughout. Abdomen: +BS, soft, non-tender, non-distended. Extremities: 2-plus generalized right lower extremity swelling. SCD's in place. Two lateral right femur bandages, each c/d/i. Right arm is now warm to touch with some hand edema. 2+ radial pulse. Neuro: Symmetrical facial expression (i.e. no obvious facial droop and can smile symmetrically). Has some mild difficulty initiating words with some slurring but is understandable, about the same as yesterday. 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 Denies any feeling in right hand, but says has some light feeling on heavy pressure in right forearm and shoulder. Right toes wiggle and somewhat stronger attempted plantar-flexion. Left arm full ROM and normal strength distally. Left plantarflexion intact. Lines: PIV. Laboratory Results 12/18/17 05:53 Red Blood Count 2.63, Mean Corpuscular Volume 95.4, Mean Corpuscular Hemoglobin 31.9, Mean Corpuscular Hemoglobin Concent 33.5, Mean Platelet Volume 8.3, Neutrophils (%) (Auto) 82.1, Lymphocytes (%) (Auto) 7.7, Monocytes (%) (Auto) 7.7, Eosinophils (%) (Auto) 1.3, Basophils (%) (Auto) 0.0, Neutrophils # (Auto) 5.69, Lymphocytes # (Auto) 0.53, Monocytes # (Auto) 0.53, Eosinophils # (Auto) 0.09, Basophils # (Auto) 0.00 12/18/17 05:53 Test 12/18/17 05:53 White Blood Count 6.92 K/uL (4.8-10.8) Red Blood Count 2.63 M/uL (4.7-6.1) Hemoglobin 8.4 g/dL (14.0-18.0) Hematocrit 25.1 % (42-52) Mean Corpuscular Volume 95.4 fL (80-100) Mean Corpuscular Hemoglobin 31.9 pg (25-34) Mean Corpuscular Hemoglobin Concent 33.5 g/dl (32-36) Platelet Count 201 K/uL (130-400) Mean Platelet Volume 8.3 fL (7.4-10.4) Neutrophils (%) (Auto) 82.1 % Lymphocytes (%) (Auto) 7.7 % Monocytes (%) (Auto) 7.7 % Eosinophils (%) (Auto) 1.3 % Basophils (%) (Auto) 0.0 % Neutrophils # (Auto) 5.69 K/uL (1.4-6.5) Lymphocytes # (Auto) 0.53 K/uL (1.2-3.4) Monocytes # (Auto) 0.53 K/uL (0.11-0.59) Eosinophils # (Auto) 0.09 K/uL (0-0.5) Basophils # (Auto) 0.00 K/uL (0-0.2) RDW Standard Deviation 45.0 fL (36.4-46.3) RDW Coefficient of Variation 13.1 % (11.5-14.5) Immature Granulocyte % (Auto) 1.2 % Immature Granulocyte # (Auto) 0.08 K/uL (0.00-0.02) Red Blood Cell Morphology Unremarkable Anion Gap 6.0 mmol/L (3-11) Est Creatinine Clear Calc Drug Dose 121.7 ml/min Estimated GFR () 121.7 Estimated GFR (Non- 105.0 BUN/Creatinine Ratio 23.5 (10-20) Calcium Level 7.4 mg/dl (8.5-10.1) Triglycerides Level 77 mg/dl (0-150) Cholesterol Level 104 mg/dl (0-200) HDL Cholesterol 32 mg/dl LDL Cholesterol, Calculated 57 mg/dl VLDL Cholesterol, Calculated 15 mg/dl Cholesterol/HDL Ratio 3.3 Assessment and Plan 72 year old male with a PMH of hypothyroidism and vertigo that presented after a fall and was found to have an intertrochanteric fracture of the right hip Encephalopathy: Possibly related to prn pain meds. Issues with lethargy on 20Apr but greatly improved/resolved over the subsequent 48 hours. - Continue scheduled tylenol and avoid pain medications unless absolutely necessary. Intertrochanteric fracture of the right hip: S/p fall, now POD#4. See related ortho note. Recommended WBAT and no further ortho workup. - Pain meds with tylenol scheduled q6h. Zofran IV prn nausea. - Would greatly benefit from inpatient rehab at this point. -- Fracture s/p fall from ~3 ft, likely related to osteoporosis. Vit D level of 20.9, so started on Vitamin D. 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 Multiple MRA images of the carotids notes complete occlusion of the left internal carotid artery as well as a high degree stenosis of the left external carotid artery as well as moderate stenosis at the origin of the right external carotid artery. Recheck of lipids does not suggest need for statin treatment at this time. Neurology on board, please see their discussion as well. Patient did briefly have a cold to touch right upper extremity. X-rays and vascular ultrasound imaging were unremarkable. This cool temperature has resolved on repeat exam. - Speech swallow evaluation obtained. Nursing reports, patient did tolerate slippery diet and thin liquids. - Converted his aspirin to 81 mg daily. - Would greatly benefit from inpatient rehab at this point. Anemia: Due to acute blood loss from hip fracture. Low Hb 7.8, stabilized to the mid 8's. Monitoring. Hypothyroidism: Continue home levothyroxine. GERD: Held home ranitidine on admit. DVT: Added Lovenox 40 mg subcu daily due to risk of DVT due to his relative immobility. Also has SCD's bilaterally. Code: FULL Dispo: Telemetry. Will very likely need acute inpatient rehab, perhaps [facility] (see PT recommendation). Resident Physician Supervision Note: I interviewed and examined the patient. Discussed with Dr. Pina and agree with findings and plan as documented in the note. Any exceptions or clarifications are listed here: None Documented By: Jace Concepcion feeling ok except R arm doesn't work. face appears to have improved vitals noted nad breathing unlabored flaccid paralysis R arm facial droop better than yesterday acute CVA - totally occluded carotid, so almost certainly intracranial atherosclerosis - neuro notes MRI is a watershed type pattern --- ?"perfect storm" of pre-existing cerebrovascular / carotid disease with watershed effect related to blood loss that always occurs w hip fx? vs spontaneous event due simply to underlying severe carotid/cerebrovascular disease. continue asa. lipids too low w prior ICH to have safe dosing of statin osteoporotic hip fx w D deficiency and acute blood loss anemia -- overall stable for rehab PT/OT hopefully HSR 12/19 Resident Tracking Resident Involvement: Resident Care Provided Care Provided: Adult Hospital Medicine (inpatient)
[2017-12-18] MEDS: CHOLECALCIFEROL 1000 INTER.UNIT TAB PO SCH (09:12)
[2017-12-18] MEDS: ASPIRIN 81 MG ECTAB PO SCH (09:12)
[2017-12-18] MEDS ORDERED: ENOXAPARIN 40 MG/0.4 ML SYR SQ ONE (10:53)
--- NOTE | 2017-12-18 12:56 | Neurology Consultation ---
Neurology Consultation Date of Consultation: Dec 18, 2017. Attending Physician: Jace Concepcion D.O. Primary Care Physician: Phill Flynn D.O. Reason for Consultation: Stroke History of Present Illness Source: patient, hospital records The patient is a 72-year-old male who presented with right hip pain after a fall. He was diagnosed with a right hip fracture and underwent surgical repair on December 14. He was noted to be lethargic, hypotensive, and tachycardic the following evening. He was also noted to have some difficulty with speech and right-sided weakness. A CT of the head obtained on December 16 was negative for hemorrhage or acute process. A brain MRI completed on December 17 revealed multiple punctate acute infarcts within the left posterior parietal lobe and left frontal lobe. There is no flow within the left internal carotid artery at the skull base, with reconstitution at the [place]. 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 Currently, the patient complains of severe weakness of the right upper extremity. He is mildly confused and tends to ramble. He denies headache, vision loss, palpitations, or shortness of breath at this time. Past Medical/Surgical History Medical Problems: (1) CHI (closed head injury) Status: Acute (2) Contusion of multiple sites Status: Acute (3) Fall Status: Acute (4) Femur fracture, right Status: Acute Family History Noncontributory Social History Smoking Status: Never smoker Smokeless Tobacco Use: No Alcohol Use: none Drug Use: none Marital Status: single Housing Status: lives alone Occupation Status: disabled Allergies Coded Allergies: Morphine (Verified Adverse Reaction, Unknown, LOW BP, 12/14/17) Oxycodone (Verified Adverse Reaction, Unknown, INTOLERANCE PER DR NICHOLSON-- ELEVATED LIVER ENZYMES, 12/14/17) Current Inpatient Medications Current Inpatient Medications Medications (Trade) Dose Ordered Sig/Pam Route Start Time Stop Time Status Last Admin Dose Admin Acetaminophen (Tylenol Tab) 650 mg Q4H PRN PO 12/14/17 04:15 01/13/18 04:14 Future Hold Al Hydrox/Mg Hydrox/Simethicone (Maalox Max Susp) 15 ml Q4H PRN PO 12/14/17 04:15 01/13/18 04:14 Magnesium Hydroxide (Milk Of Magnesia Susp) 30 ml Q6H PRN PO 12/14/17 04:15 01/13/18 04:14 Polyethylene (Miralax Powder Packet) 17 gm DAILY PRN PO 12/14/17 04:15 01/13/18 04:14 Ondansetron HCl (Zofran Inj) 4 mg Q6H PRN IV 12/14/17 04:15 01/13/18 04:14 Sodium Chloride 1,000 ml @ 100 mls/hr Q10H IV 12/14/17 04:15 01/13/18 04:14 12/18/17 09:11 100 MLS/HR Senna/Docusate Sodium (Senokot S Tab) 2 tab HS PO 12/14/17 21:00 01/13/18 20:59 12/17/17 21:48 2 TAB Bisacodyl (Dulcolax Supp) 10 mg DAILY PRN [place] 12/14/17 18:00 01/13/18 17:59 Acetaminophen (Tylenol Tab) 650 mg Q6H PO 12/16/17 12:00 01/15/18 11:59 12/18/17 11:59 650 MG Levothyroxine Sodium (Synthroid Tab) 75 mcg DAILYBB PO 12/17/17 06:00 01/16/18 05:59 12/18/17 06:01 75 MCG Hydromorphone HCl (Dilaudid Inj) 0.25 mg Q6 PRN IV 12/16/17 19:00 12/28/17 05:44 Miscellaneous Information (Pharmacist Discharge Med Rec Consult) 1 ea UD PRN N/A 12/17/17 06:00 01/16/18 05:59 Cholecalciferol (Vitamin D Tab) 2,000 inter.unit QAM PO 12/18/17 09:00 01/17/18 08:59 12/18/17 09:12 2,000 INTER.UNIT Ergocalciferol (Vitamin D Cap) 50,000 interunit Sa@0900 PO 12/17/17 10:15 01/16/18 10:14 12/17/17 12:37 50,000 INTERUNIT Aspirin (Ecotrin Tab) 81 mg DAILY PO 12/19/17 09:00 01/14/18 08:59 Enoxaparin Sodium (Lovenox Inj) 40 mg QAM SQ 12/19/17 09:00 01/18/18 08:59 Review of Systems Constitutional: No fever chills Eyes: No vision loss or diplopia ENT: No hearing loss or vertigo Cardiovascular: No chest pain or palpitations Respiratory: No cough or shortness of breath Neurological: As per history of present illness Musculoskeletal: Recent right hip fracture as per history of present illness Hematologic: No abnormal bruising or bleeding Psychiatric: No depression or anxiety reported history of treatment for psychiatric illness. A full 10 point review of systems was obtained from this patient with pertinent positives and negatives described in history of present illness and otherwise listed above. All remaining systems were reviewed and are negative. Physical Exam Vital Signs (Past 24 Hrs): Date Time Temp Pulse Resp B/P (MAP) Pulse Ox O2 Delivery O2 Flow Rate FiO2 12/18/17 12:00 Room Air 12/18/17 11:21 37.1 70 20 149/85 (106) 96 Room Air 12/18/17 08:00 Room Air 12/18/17 07:25 37.1 77 20 149/77 (101) 94 Room Air 12/18/17 04:00 Room Air 12/18/17 03:06 37.2 86 18 128/89 (102) 93 Room Air 12/18/17 00:02 Room Air 12/17/17 23:36 37.2 88 18 146/96 (113) 92 Room Air 12/17/17 20:22 37.3 79 19 161/80 (107) 96 Room Air 12/17/17 20:00 Room Air 12/17/17 16:00 Room Air 12/17/17 15:07 36.6 68 19 152/79 (103) 97 Room Air 12/17/17 13:20 37.0 66 18 154/83 (106) 96 Room Air Patient is a well-developed elderly male. He is lying comfortably in bed. He is alert and oriented to person and place only. Remote memory seems to be intact. Recent memory cannot be adequately assessed as he appears mildly confused. Attention and concentration are mildly impaired. Patient is able to name objects and repeat phrases. He exhibits an age-appropriate fund of knowledge a normal vocabulary. Visual raines full to confrontation. Visual acuity normal. Pupils equal round reactive to light and accommodation. Eye movements normal. There is no nystagmus. Facial sensation intact. There is normal facial strength and symmetry. Hearing intact. Palate elevates to midline. Tongue protrudes to midline. Shoulder shrug strength intact. Sensation intact to all modalities for all 4 limbs. Deep tendon reflexes are increased for the right arm and leg. Right plantar response upgoing. Left plantar response downgoing. Testing of coordination cannot be completed for the right arm or leg as the right upper extremity exhibits a flaccid paralysis while the right lower extremity is partially mobilized and status post surgical repair of his right hip fracture. There is no dysmetria with [id number] or heel to cage on the left. Ophthalmoscopic examination reveals normal-appearing optic nerves and posterior segments. No papilledema or hemorrhages. Carotid pulses normal bilaterally, no bruits to auscultation. Gait and station cannot be tested. Patient has flaccid weakness of the right upper extremity, 0/5. Right lower extremity strength cannot really be adequately tested as he is currently status post surgical repair of a right hip fracture. However, he is able to briefly lift the right lower extremity out of the bed against gravity. He wiggles the toes of both feet symmetrically. Strength for the left arm and leg is normal. Muscle tone for the left arm and leg normal. No atrophy. No abnormal movements observed. Laboratory Results Past 24 Hours: 12/18/17 05:53 Red Blood Count 2.63, Mean Corpuscular Volume 95.4, Mean Corpuscular Hemoglobin 31.9, Mean Corpuscular Hemoglobin Concent 33.5, Mean Platelet Volume 8.3, Neutrophils (%) (Auto) 82.1, Lymphocytes (%) (Auto) 7.7, Monocytes (%) (Auto) 7.7, Eosinophils (%) (Auto) 1.3, Basophils (%) (Auto) 0.0, Neutrophils # (Auto) 5.69, Lymphocytes # (Auto) 0.53, Monocytes # (Auto) 0.53, Eosinophils # (Auto) 0.09, Basophils # (Auto) 0.00 12/18/17 05:53 Test 12/18/17 05:53 White Blood Count 6.92 K/uL (4.8-10.8) Red Blood Count 2.63 M/uL (4.7-6.1) Hemoglobin 8.4 g/dL (14.0-18.0) Hematocrit 25.1 % (42-52) Mean Corpuscular Volume 95.4 fL (80-100) Mean Corpuscular Hemoglobin 31.9 pg (25-34) Mean Corpuscular Hemoglobin Concent 33.5 g/dl (32-36) Platelet Count 201 K/uL (130-400) Mean Platelet Volume 8.3 fL (7.4-10.4) Neutrophils (%) (Auto) 82.1 % Lymphocytes (%) (Auto) 7.7 % Monocytes (%) (Auto) 7.7 % Eosinophils (%) (Auto) 1.3 % Basophils (%) (Auto) 0.0 % Neutrophils # (Auto) 5.69 K/uL (1.4-6.5) Lymphocytes # (Auto) 0.53 K/uL (1.2-3.4) Monocytes # (Auto) 0.53 K/uL (0.11-0.59) Eosinophils # (Auto) 0.09 K/uL (0-0.5) Basophils # (Auto) 0.00 K/uL (0-0.2) RDW Standard Deviation 45.0 fL (36.4-46.3) RDW Coefficient of Variation 13.1 % (11.5-14.5) Immature Granulocyte % (Auto) 1.2 % Immature Granulocyte # (Auto) 0.08 K/uL (0.00-0.02) Red Blood Cell Morphology Unremarkable Anion Gap 6.0 mmol/L (3-11) Est Creatinine Clear Calc Drug Dose 121.7 ml/min Estimated GFR () 121.7 Estimated GFR (Non- 105.0 BUN/Creatinine Ratio 23.5 (10-20) Calcium Level 7.4 mg/dl (8.5-10.1) Triglycerides Level 77 mg/dl (0-150) Cholesterol Level 104 mg/dl (0-200) HDL Cholesterol 32 mg/dl LDL Cholesterol, Calculated 57 mg/dl VLDL Cholesterol, Calculated 15 mg/dl Cholesterol/HDL Ratio 3.3 Impression Multiple punctate ischemic infarcts within the left cerebral hemisphere, potentially consistent with a watershed type distribution, occurring in the context of a completely thrombosed left internal carotid artery. This infarct occurred after his recent right hip fracture for which he underwent surgical fixation that day. He has flaccid weakness of the right upper extremity and mild confusion but does not seem to be aphasic. His right lower extremity is modestly week as well although may also be affected by his recent right hip fracture and surgery. Plan I would recommend MR angiography of the head and neck to confirm the suspected complete thrombosis of the left internal carotid artery. If there is any evidence of residual flow then I would recommend vascular surgery consultation. Otherwise, there is no proven treatment for completely thrombosed internal carotid artery. However, antiplatelet therapy is typically recommended and I would agree with aspirin 81 milligrams per day As ordered PT/OT/speech therapy Please contact me if I may be of further assistance
--- NOTE | 2017-12-18 14:19 | DIAGNOSTIC IMAGING REPORT ---
MRA HEAD WITHOUT CONTRAST HISTORY: Stroke, thrombosis of left internal carotid artery TECHNIQUE: 3-D [id number] MRA of the brain was performed without contrast. COMPARISON STUDY: None. FINDINGS: There are findings of occlusion of the left internal carotid artery. Anterior cerebral vasculature fills via the right internal carotid artery supply. There is dampened flow within the left middle cerebral artery. This vessel appears to be supplied via components of the left anterior cerebral vasculature as well as a left posterior communicator. Right cerebral circulation appear to be intact. The vertebral basilar system appears unremarkable. IMPRESSION: 1. Complete occlusion left internal carotid artery. 2. Diminished flow of the left middle cerebral vasculature via collateral vessels from the anterior cerebral complex and a left posterior communicating vessel. 3. Remainder of the study is unremarkable. The above report was generated using voice recognition software. It may contain grammatical, syntax or spelling errors. Electronically signed by: Kieran Bangura M.D. 12/18/2017 2:18 PM Dictated Date/Time: 12/18/2017 2:13 PM
--- NOTE | 2017-12-18 14:48 | DIAGNOSTIC IMAGING REPORT ---
MRA NECK COMBO HISTORY: Mental status change Stroke, thrombosis of left internal carotid artery TECHNIQUE: [id number] and gadolinium-enhanced MRA of the neck was performed both before and after the intravenous administration of contrast. All measurements were calculated based on NASCET criteria. COMPARISON STUDY: None. FINDINGS: The aortic arch and proximal great vessels are widely patent. There is complete occlusion of the left internal carotid artery at its origin. As high degree of stenosis of the left external carotid artery is origin. Moderate stenosis of the right external carotid artery. There is no significant stenotic process of the right internal carotid artery. Vertebral basilar system appears unremarkable. IMPRESSION: 1. Complete occlusion left internal carotid artery. 2. High degree of stenosis left external carotid artery. 3. Moderate stenosis origin right external carotid artery. 4. Normal vertebral basilar system. IMPRESSION: No significant stenosis, occlusion, or dissection identified within the carotid or vertebral arteries. The above report was generated using voice recognition software. It may contain grammatical, syntax or spelling errors. Electronically signed by: Kieran Bangura M.D. 12/18/2017 2:46 PM Dictated Date/Time: 12/18/2017 2:43 PM
[2017-12-18] MEDS: DOCUSATE SODIUM/SENNA 50/8.6MG TAB PO SCH (21:00)
[2017-12-18] MEDS ORDERED: hydrOXYzine HCL 25 MG TAB PO STA (21:50)
[2017-12-18] MEDS ORDERED: hydrOXYzine HCL 25 MG TAB PO PRN (22:00)
[2017-12-19] MEDS: SODIUM CHLORIDE 0.9% 1000ML 1,000 ML IV SCH (03:34)
[2017-12-19 04:48] VITALS: BP 169/96; PULSE 73; TEMP 37.1; O2SAT 96
[2017-12-19] MEDS: ACETAMINOPHEN 325 MG TAB PO SCH ×4 (06:24→23:57)
[2017-12-19] MEDS: LEVOTHYROXINE 75 MCG TAB PO SCH (06:24)
[2017-12-19 07:46] VITALS: BP 153/69; PULSE 71; TEMP 36.9; O2SAT 95
[2017-12-19] MEDS: CHOLECALCIFEROL 1000 INTER.UNIT TAB PO SCH (08:14)
[2017-12-19] MEDS: ENOXAPARIN 40 MG/0.4 ML SYR SQ SCH (08:15)
[2017-12-19] MEDS: ASPIRIN 81 MG ECTAB PO SCH (08:15)
[2017-12-19] MEDS ORDERED: FUROSEMIDE INJ 20 MG in SYRINGE 0 ML IV ONE (11:15)
[2017-12-19 11:49] VITALS: BP 125/74; PULSE 85
[2017-12-19 11:53] VITALS: BP 149/68; PULSE 69; TEMP 36.8; O2SAT 96
[2017-12-19 12:55] VITALS: BP 129/80; PULSE 97; TEMP 37.1; O2SAT 97
[2017-12-19 15:47] VITALS: BP 120/70; PULSE 90; TEMP 37.4; O2SAT 95
--- NOTE | 2017-12-19 20:11 | Family Medicine Progress Note ---
Progress Note Date of Service Dec 19, 2017. Subjective Pt evaluation today including: conversation w/ patient, physical exam, chart review, lab review Pain: reports discomfort in R side PO Intake: tolerating Voiding: hardy catheter in place This AM pt reports discomfort and numbness on R side of body arm and leg. Reports slow urinary stream. O/w asymptomatic. Constitutional: No fever Respiratory: No shortness of breath Cardiovascular: No chest pain Abdomen: No pain, No nausea, No vomiting Male : + slowing stream, No dysuria Neurologic: + weakness Medications Current Inpatient Medications Medications (Trade) Dose Ordered Sig/Pam Route Start Time Stop Time Status Last Admin Dose Admin Acetaminophen (Tylenol Tab) 650 mg Q4H PRN PO 12/14/17 04:15 01/13/18 04:14 Future Hold Al Hydrox/Mg Hydrox/Simethicone (Maalox Max Susp) 15 ml Q4H PRN PO 12/14/17 04:15 01/13/18 04:14 Magnesium Hydroxide (Milk Of Magnesia Susp) 30 ml Q6H PRN PO 12/14/17 04:15 01/13/18 04:14 Polyethylene (Miralax Powder Packet) 17 gm DAILY PRN PO 12/14/17 04:15 01/13/18 04:14 Ondansetron HCl (Zofran Inj) 4 mg Q6H PRN IV 12/14/17 04:15 01/13/18 04:14 Senna/Docusate Sodium (Senokot S Tab) 2 tab HS PO 12/14/17 21:00 01/13/18 20:59 12/17/17 21:48 2 TAB Bisacodyl (Dulcolax Supp) 10 mg DAILY PRN [place] 12/14/17 18:00 01/13/18 17:59 Acetaminophen (Tylenol Tab) 650 mg Q6H PO 12/16/17 12:00 01/15/18 11:59 12/19/17 18:18 650 MG Levothyroxine Sodium (Synthroid Tab) 75 mcg DAILYBB PO 12/17/17 06:00 01/16/18 05:59 12/19/17 06:24 75 MCG Hydromorphone HCl (Dilaudid Inj) 0.25 mg Q6 PRN IV 12/16/17 19:00 12/28/17 05:44 Miscellaneous Information (Pharmacist Discharge Med Rec Consult) 1 ea UD PRN N/A 12/17/17 06:00 01/16/18 05:59 Cholecalciferol (Vitamin D Tab) 2,000 inter.unit QAM PO 12/18/17 09:00 01/17/18 08:59 12/19/17 08:14 2,000 INTER.UNIT Ergocalciferol (Vitamin D Cap) 50,000 interunit Sa@0900 PO 12/17/17 10:15 01/16/18 10:14 12/17/17 12:37 50,000 INTERUNIT Aspirin (Ecotrin Tab) 81 mg DAILY PO 12/19/17 09:00 01/14/18 08:59 12/19/17 08:15 81 MG Enoxaparin Sodium (Lovenox Inj) 40 mg QAM SQ 12/19/17 09:00 01/18/18 08:59 12/19/17 08:15 40 MG Objective Vital Signs Date Time Temp Pulse Resp B/P (MAP) Pulse Ox O2 Delivery O2 Flow Rate FiO2 12/19/17 16:30 Room Air 12/19/17 15:47 37.4 90 18 120/70 (87) 95 Room Air 12/19/17 12:55 37.1 97 129/80 (96) 97 Room Air 12/19/17 12:00 Room Air 12/19/17 11:53 36.8 69 18 149/68 (95) 96 12/19/17 11:49 85 12/19/17 08:00 Room Air 12/19/17 07:46 36.9 71 18 153/69 (97) 95 12/19/17 04:48 37.1 73 17 169/96 (120) 96 Room Air 12/19/17 04:00 Room Air 12/18/17 23:59 37.0 81 20 142/90 (107) 95 Room Air 12/18/17 23:59 95 Room Air 12/18/17 20:00 96 Room Air Physical Exam General Appearance: no apparent distress Eyes: normal inspection Neck: supple Respiratory/Chest: lungs clear, normal breath sounds Cardiovascular: regular rate, rhythm, no murmur Abdomen: normal bowel sounds, non tender, soft Extremities: non-tender, + swelling (2+ pretibial edema RLE; 1+ LLE) Neurologic/Psychiatric: alert, oriented x 3, + pertinent finding (mild R facial droop; R arm flaccid with decreased sensation; L hip dressing C/D/I - reports pain on palpation of surgical site) Laboratory Results Test 12/19/17 11:14 Bedside Glucose 187 mg/dl (70-99) Assessment and Plan 72 year old male with a PMH of hypothyroidism and vertigo that presented after a fall. Found to have an intertrochanteric fracture of the right hip. NOW s/p ORIF day 5 with acute CVA likely s/p acute ischemic insult post hip fracture in the setting of pre-existing cerebrovascular disease and carotid occlusion. Intertrochanteric fracture of the right hip: S/p fall, now POD#5. S -WBAT -Tylenol scheduled q6h. Zofran IV prn nausea. -inpatient rehab -Fracture s/p fall from ~3 ft, likely related to osteoporosis. -Vit D level of 20.9, on Vitamin D. Recommend bisphosphonates in 1 month from discharge Acute CVA with right upper extremity weakness -MRI - acute ischemic insult: watershed type -MRA - complete occlusion of the left internal carotid artery; high degree stenosis of the left external carotid artery; moderate stenosis origin of right external carotid artery -Low lipids w/t prior ICH - no statins indicated -Neurology: consulted -Speech swallow obtained - tolerated slippery diet and thin liquids -Continue aspirin to 81 mg daily -Inpatient rehab Volume overloaded - Stopped IVF - Given Lasix 20mg IV Encephalopathy - resolving: -Likely related to prn pain meds -Continue scheduled tylenol and avoid pain medications unless absolutely necessary. Anemia: Due to acute blood loss from hip fracture. -Low Hb 7.8, stabilized to the mid 8's -Monitor Hypothyroidism: -Continue home levothyroxine GERD: -Restart home ranitidine tomorrow DVT: Added Lovenox 40 mg subQ daily due to risk of DVT given immobility. Also has SCD's bilaterally. Code: FULL Dispo: pending [facility] (see PT recommendation) Resident Physician Supervision Note: I was present with Dr. Blanco during the history and exam. I discussed the case with the resident and agree with the findings and plan as documented in the note. Any exceptions or clarifications are listed here: He really has no specific complaints this morning. He does look slightly fluid overloaded - pitting LE edema - but no pulmonary indications of fluid overload. He is (+) about 8L and 4Kg. Since he appears to be Lasix naive, low dose of IV lasix should provide for nice diuresis. Documented By: Tom Hahn Resident Involvement: Resident Care Provided Care Provided: Adult Hospital Medicine
--- NOTE | 2017-12-19 20:27 | PROGRESS NOTE ---
DATE: 12/19/2017 SUBJECTIVE: A 72-year-old gentleman 5 days out from a right long trochanteric nail for an intertroch/subtroch fracture. He has clearly had a stroke with some right-sided hemiparesis. He does not report really any particular pain of the right leg. He is just numb on his right thigh. OBJECTIVE: VITAL SIGNS: Temperature is 37.4. Vital signs stable. GENERAL: Reveals a pleasant elderly male. He is sitting up in bed, looks reasonably comfortable. EXTREMITIES: Examination of the right leg reveals the leg lengths to be equal. He can slightly dorsiflex and plantarflex his toes, but it is much weaker today than it has been in the past 2 days. His incisions are clean, dry, and intact. He does have some moderate diffuse swelling. He has got edema as well. ASSESSMENT: A 72-year-old gentleman 5 days out from a right intertrochanteric/subtrochanteric intermedullary nailing with a subsequent stroke and right hemiparesis. I do think this has even progressed since yesterday to some degree. He is certainly not moving right upper arm, but he was not weak and dysfunctional in his right lower extremity at that time. PLAN: 1. Deep vein thrombosis prophylaxis including thigh high TEDs, SCDs, and any anticoagulation indicated based on his cerebrovascular disease. We typically just use aspirin but certainly any more aggressive anticoagulation is okay with us. 2. PT, OT. Can fully weightbear right lower extremity. 3. Medical and neurological management as per the neurology and medicine services. We will defer all those decisions to them. 4. Disposition: He will likely need a rehab stay. Certainly with his stroke, [facility] would be appropriate. I will need to see him back 2 weeks post surgery. Any orthopedic questions can be directed at [phone]. No further orthopedic needs at this time. We did order him a sling for his right arm just to give it some support. MARU
[2017-12-19] MEDS ORDERED: NURSING VERBAL MED ORDER ONE (21:15)
[2017-12-19] MEDS ORDERED: TRAZODONE HCL 50 MG TAB PO PRN (21:15)
[2017-12-19] MEDS: DOCUSATE SODIUM/SENNA 50/8.6MG TAB PO SCH (21:43)
[2017-12-20 00:07] VITALS: BP 136/76; PULSE 76; TEMP 37.2; O2SAT 95
[2017-12-20 05:57] LABS: BASO % 0.3 %; BASO ABS # 0.02 K/uL (0-0.2); EOS % 3.3 %; EOS ABS # 0.21 K/uL (0-0.5); HEMATOCRIT 26.2 % (42-52); HEMOGLOBIN 8.7 g/dL (14.0-18.0); IG# 0.23 K/uL (0.00-0.02); LYMPH ABS # 0.57 K/uL (1.2-3.4); MEAN CELL VOLUME 96.7 fL (80-100); MEAN CORPUSCULAR HEMOGLOBIN 32.1 pg (25-34); MEAN CORPUSCULAR HGB CONC 33.2 g/dl (32-36); MEAN PLATELET VOLUME 8.4 fL (7.4-10.4); MONO % 7.3 %; MONO ABS # 0.46 K/uL (0.11-0.59); NEUT % 76.5 %; NEUT ABS # 4.85 K/uL (1.4-6.5); PLATELET COUNT 256 K/uL (130-400); RED CELL DISTRIBUTION WIDTH CV 13.3 % (11.5-14.5); RED CELL DISTRIBUTION WIDTH SD 45.5 fL (36.4-46.3); WHITE BLOOD COUNT 6.34 K/uL (4.8-10.8)
[2017-12-20] MEDS: LEVOTHYROXINE 75 MCG TAB PO SCH (06:07)
[2017-12-20] MEDS: ACETAMINOPHEN 325 MG TAB PO SCH ×3 (06:08→17:19)
[2017-12-20 06:26] LABS: CALCIUM 7.3 mg/dl (8.5-10.1); CREATININE 0.62 mg/dl (0.60-1.40); POTASSIUM 3.6 mmol/L (3.5-5.1)
[2017-12-20 07:01] VITALS: BP 168/87; PULSE 64; TEMP 36.6; O2SAT 97
[2017-12-20 09:57] VITALS: BP 123/73; PULSE 70; TEMP 36.6; O2SAT 97
[2017-12-20] MEDS: CHOLECALCIFEROL 1000 INTER.UNIT TAB PO SCH (11:03)
[2017-12-20] MEDS: ENOXAPARIN 40 MG/0.4 ML SYR SQ SCH (11:04)
[2017-12-20] MEDS: ASPIRIN 81 MG ECTAB PO SCH (11:05)
[2017-12-20] MEDS ORDERED: FUROSEMIDE 20 MG TAB PO STA (11:46)
[2017-12-20] MEDS ORDERED: hydrOXYzine HCL 25 MG TAB PO PRN (12:00)
--- NOTE | 2017-12-20 12:55 | Family Medicine Progress Note ---
Progress Note Date of Service Dec 20, 2017. Subjective Pt evaluation today including: conversation w/ patient, physical exam, chart review, lab review Pain: reports persistent R hip pain PO Intake: tolerating Voiding: hardy catheter in place This AM per nursing noted to be drowsy with occasional episodes of altered mentation. Pt reports falling asleep late in the morning hours after receiving Trazodone for sleep. Otherwise reports increased cough and sob this AM. Denies any worsening R sided weakness/numbness or worsening R hip pain. Otherwise asymptomatic. Constitutional: No fever Respiratory: + cough, + shortness of breath Cardiovascular: No chest pain Abdomen: No pain, No nausea, No vomiting Musculoskeletal: + problem reported (R hip pain ) Male : + problem reported (on hardy) Neurologic: + weakness (RUE and RLE), + numbness/tingling (RUE and RLE) Medications Current Inpatient Medications Medications (Trade) Dose Ordered Sig/Pam Route Start Time Stop Time Status Last Admin Dose Admin Acetaminophen (Tylenol Tab) 650 mg Q4H PRN PO 12/14/17 04:15 01/13/18 04:14 Future Hold Al Hydrox/Mg Hydrox/Simethicone (Maalox Max Susp) 15 ml Q4H PRN PO 12/14/17 04:15 01/13/18 04:14 Magnesium Hydroxide (Milk Of Magnesia Susp) 30 ml Q6H PRN PO 12/14/17 04:15 01/13/18 04:14 Polyethylene (Miralax Powder Packet) 17 gm DAILY PRN PO 12/14/17 04:15 01/13/18 04:14 Ondansetron HCl (Zofran Inj) 4 mg Q6H PRN IV 12/14/17 04:15 01/13/18 04:14 Senna/Docusate Sodium (Senokot S Tab) 2 tab HS PO 12/14/17 21:00 01/13/18 20:59 12/19/17 21:43 2 TAB Bisacodyl (Dulcolax Supp) 10 mg DAILY PRN [place] 12/14/17 18:00 01/13/18 17:59 Acetaminophen (Tylenol Tab) 650 mg Q6H PO 12/16/17 12:00 01/15/18 11:59 12/20/17 17:19 650 MG Levothyroxine Sodium (Synthroid Tab) 75 mcg DAILYBB PO 12/17/17 06:00 01/16/18 05:59 12/20/17 06:07 75 MCG Hydromorphone HCl (Dilaudid Inj) 0.25 mg Q6 PRN IV 12/16/17 19:00 12/28/17 05:44 Miscellaneous Information (Pharmacist Discharge Med Rec Consult) 1 ea UD PRN N/A 12/17/17 06:00 01/16/18 05:59 Cholecalciferol (Vitamin D Tab) 2,000 inter.unit QAM PO 12/18/17 09:00 01/17/18 08:59 12/20/17 11:03 2,000 INTER.UNIT Ergocalciferol (Vitamin D Cap) 50,000 interunit Sa@0900 PO 12/17/17 10:15 01/16/18 10:14 12/17/17 12:37 50,000 INTERUNIT Aspirin (Ecotrin Tab) 81 mg DAILY PO 12/19/17 09:00 01/14/18 08:59 12/20/17 11:05 81 MG Enoxaparin Sodium (Lovenox Inj) 40 mg QAM SQ 12/19/17 09:00 01/18/18 08:59 12/20/17 11:04 40 MG Hydroxyzine HCl (Vistaril Tab) 25 mg QPM PRN PO 12/20/17 12:00 01/19/18 11:59 Objective Vital Signs Date Time Temp Pulse Resp B/P (MAP) Pulse Ox O2 Delivery O2 Flow Rate FiO2 12/20/17 15:26 37.2 76 16 157/72 (100) 96 Room Air 12/20/17 15:02 Room Air 12/20/17 09:57 36.6 70 18 123/73 (90) 97 Room Air 12/20/17 09:00 Room Air 12/20/17 07:01 36.6 64 18 168/87 (114) 97 Room Air 12/20/17 00:07 37.2 76 20 136/76 (96) 95 Room Air 12/20/17 00:00 Room Air Physical Exam General Appearance: + pertinent finding (appears tired) Eyes: normal inspection ENT: normal ENT inspection Neck: supple Respiratory/Chest: lungs clear, normal breath sounds Cardiovascular: regular rate, rhythm, no murmur Abdomen: normal bowel sounds, non tender, soft Extremities: + pertinent finding (TTP of R hip region with C/D/I dressing) Neurologic/Psychiatric: alert, oriented x 3 (reports name, , being at [facility], month november and year 2017), + pertinent finding (RUE still flaccid with decreased sensation) Skin: warm/dry Laboratory Results Current Inpatient Medications Medications (Trade) Dose Ordered Sig/Pam Route Start Time Stop Time Status Last Admin Dose Admin Acetaminophen (Tylenol Tab) 650 mg Q4H PRN PO 12/14/17 04:15 01/13/18 04:14 Future Hold Al Hydrox/Mg Hydrox/Simethicone (Maalox Max Susp) 15 ml Q4H PRN PO 12/14/17 04:15 01/13/18 04:14 Magnesium Hydroxide (Milk Of Magnesia Susp) 30 ml Q6H PRN PO 12/14/17 04:15 01/13/18 04:14 Polyethylene (Miralax Powder Packet) 17 gm DAILY PRN PO 12/14/17 04:15 01/13/18 04:14 Ondansetron HCl (Zofran Inj) 4 mg Q6H PRN IV 12/14/17 04:15 01/13/18 04:14 Senna/Docusate Sodium (Senokot S Tab) 2 tab HS PO 12/14/17 21:00 01/13/18 20:59 12/19/17 21:43 2 TAB Bisacodyl (Dulcolax Supp) 10 mg DAILY PRN [place] 12/14/17 18:00 01/13/18 17:59 Acetaminophen (Tylenol Tab) 650 mg Q6H PO 12/16/17 12:00 01/15/18 11:59 12/20/17 17:19 650 MG Levothyroxine Sodium (Synthroid Tab) 75 mcg DAILYBB PO 12/17/17 06:00 01/16/18 05:59 12/20/17 06:07 75 MCG Hydromorphone HCl (Dilaudid Inj) 0.25 mg Q6 PRN IV 12/16/17 19:00 12/28/17 05:44 Miscellaneous Information (Pharmacist Discharge Med Rec Consult) 1 ea UD PRN N/A 12/17/17 06:00 01/16/18 05:59 Cholecalciferol (Vitamin D Tab) 2,000 inter.unit QAM PO 12/18/17 09:00 01/17/18 08:59 12/20/17 11:03 2,000 INTER.UNIT Ergocalciferol (Vitamin D Cap) 50,000 interunit Sa@0900 PO 12/17/17 10:15 01/16/18 10:14 12/17/17 12:37 50,000 INTERUNIT Aspirin (Ecotrin Tab) 81 mg DAILY PO 12/19/17 09:00 01/14/18 08:59 12/20/17 11:05 81 MG Enoxaparin Sodium (Lovenox Inj) 40 mg QAM SQ 12/19/17 09:00 01/18/18 08:59 12/20/17 11:04 40 MG Hydroxyzine HCl (Vistaril Tab) 25 mg QPM PRN PO 12/20/17 12:00 01/19/18 11:59 Assessment and Plan 72 year old male with PMH of hypothyroidism and vertigo presented after a fall. Found to have intertrochanteric fracture of right hip. NOW s/p ORIF day 6 with acute CVA likely s/p acute ischemic insult post hip fracture in the setting of pre-existing cerebrovascular disease and carotid occlusion. RUE continues to be flaccid. Today noted to be drowsy with occasionally altered MS, likely secondary to receiving trazodone last night for sleep which did not take effect until late morning hours per patient. Trazodone dced and pt switched back to Vistaril for sleep. Continued to be somewhat volume overloaded, received another dose of lasix. Intertrochanteric fracture of the right hip: S/p fall, now POD#6. -WBAT -Tylenol scheduled q6h. Zofran IV prn nausea. -inpatient rehab -Fracture s/p fall from ~3 ft, likely related to osteoporosis. -Vit D level of 20.9, on Vitamin D. Recommend bisphosphonates in 1 month from discharge -Ortho: -signed off: follow up in 2 weeks outpt; ordered R arm sling for comfort Acute CVA with right upper extremity weakness -MRI - acute ischemic insult: watershed type -MRA - complete occlusion of the left internal carotid artery; high degree stenosis of the left external carotid artery; moderate stenosis origin of right external carotid artery -Low lipids w/t prior ICH - no statins indicated -Neurology: consulted -Speech swallow obtained - tolerated slippery diet and thin liquids -Continue aspirin to 81 mg daily -Inpatient rehab Volume overloaded - diuresed ~ 3.5 L - Stopped IVF - Given Lasix 20mg IV on 12/19 - Received another dose of Lasix 20mg PO this AM Encephalopathy - resolving: -Likely related to prn pain meds vs. trazodone -Continue scheduled tylenol and avoid pain medications unless absolutely necessary. -Dced trazodone and back on Vistaril Anemia: Due to acute blood loss from hip fracture. -Low Hb 7.8, improved to 8.7 this AM -Monitor Hypothyroidism: -Continue home levothyroxine GERD: -Restart home ranitidine tomorrow DVT: Lovenox 40 mg subQ daily due to risk of DVT given immobility. Also has SCD 's bilaterally. Code: FULL Dispo: likely tomorrow to [facility] (see PT recommendation) Resident Physician Supervision Note: I was present with Dr. Blanco during the history and exam. I discussed the case with the resident and agree with the findings and plan as documented in the note. Any exceptions or clarifications are listed here: Has diuresed nicely, and could continue PO Lasix for a few additional days. Documented By: Tom Hahn Resident Involvement: Resident Care Provided Care Provided: Adult Hospital Medicine
[2017-12-20 15:26] VITALS: BP 157/72; PULSE 76; TEMP 37.2; O2SAT 96
[2017-12-20] MEDS: DOCUSATE SODIUM/SENNA 50/8.6MG TAB PO SCH (19:57)
[2017-12-20 23:05] VITALS: BP 128/70; PULSE 72; TEMP 36.9; O2SAT 95
[2017-12-21] MEDS: ACETAMINOPHEN 325 MG TAB PO SCH ×3 (05:27→12:13)
[2017-12-21] MEDS: LEVOTHYROXINE 75 MCG TAB PO SCH (05:27)
[2017-12-21 06:30] LABS: HEMATOCRIT 25.9 % (42-52); HEMOGLOBIN 8.5 g/dL (14.0-18.0); MEAN CELL VOLUME 96.6 fL (80-100); MEAN CORPUSCULAR HEMOGLOBIN 31.7 pg (25-34); MEAN CORPUSCULAR HGB CONC 32.8 g/dl (32-36); MEAN PLATELET VOLUME 8.4 fL (7.4-10.4); PLATELET COUNT 297 K/uL (130-400); RED CELL DISTRIBUTION WIDTH CV 13.5 % (11.5-14.5); WHITE BLOOD COUNT 6.93 K/uL (4.8-10.8)
[2017-12-21 06:55] LABS: BASO % 0.3 %; BASO ABS # 0.02 K/uL (0-0.2); EOS % 3.6 %; EOS ABS # 0.25 K/uL (0-0.5); IG# 0.38 K/uL (0.00-0.02); LYMPH % 9.2 %; LYMPH ABS # 0.64 K/uL (1.2-3.4); MONO % 8.4 %; MONO ABS # 0.58 K/uL (0.11-0.59); NEUT ABS # 5.06 K/uL (1.4-6.5)
[2017-12-21 07:03] LABS: CALCIUM 7.4 mg/dl (8.5-10.1); CREATININE 0.71 mg/dl (0.60-1.40); POTASSIUM 3.6 mmol/L (3.5-5.1)
[2017-12-21 07:39] VITALS: BP 118/70; PULSE 74; TEMP 37.4; O2SAT 96
[2017-12-21] MEDS: CHOLECALCIFEROL 1000 INTER.UNIT TAB PO SCH (08:18)
[2017-12-21] MEDS: ASPIRIN 81 MG ECTAB PO SCH (08:18)
[2017-12-21] MEDS: ENOXAPARIN 40 MG/0.4 ML SYR SQ SCH (08:19)
[2017-12-21 10:18] VITALS: BP 124/78
[2017-12-21] MEDS ORDERED: ACET-1047 PO (12:00)
[2017-12-21] MEDS ORDERED: ERGO500011 PO (12:00)
[2017-12-21] MEDS ORDERED: ATR25 PO (12:00)
[2017-12-21] MEDS ORDERED: ASPI-320 PO (12:00)
--- NOTE | 2017-12-21 12:11 | Discharge Instructions ---
Discharge Instructions Date of Service Dec 21, 2017. Admission Reason for Admission: Femur Fracture, Right Discharge Discharge Diagnosis / Problem: ORIF of R hip; acute CVA Discharge Goals Goal(s): Decrease discomfort, Diagnostic testing, Therapeutic intervention Activity Recommendations Activity Limitations: resume your previous activity . Instructions / Follow-Up Instructions / Follow-Up 72 year old male with PMH of hypothyroidism and vertigo admitted after a fall. Found to have intertrochanteric fracture of right hip. NOW s/p ORIF day 7 with acute CVA likely s/p acute ischemic insult post hip fracture in the setting of pre-existing cerebrovascular disease and carotid occlusion. RUE continues to be flaccid. Continued to be somewhat volume overloaded, received lasix x 2 and will discharge to [facility] with lasix with further monitoring. Intertrochanteric fracture of the right hip: S/p fall, now POD#7 -WBAT -Continue Tylenol scheduled q6h (had encephalopathy on stronger pain medications ) -Continue Weekly Vit D 50,000 x 3 months -Recommend bisphosphonates in 1 month from discharge per PCP -inpatient rehab/PT/OT -Ortho: -follow up in 2 weeks outpt; R arm sling for comfort Acute CVA with right upper extremity weakness -Speech swallow eval: tolerated slippery diet and thin liquids -Continue aspirin to 81 mg daily -Inpatient rehab Volume overloaded - diuresed ~ 6 L (in 2 days) - Received Lasix 20mg IV x 2 - Continue Lasix 20mg PO daily and monitor volume status (discontinue as indicated - will not likely require long-term usage) : - Discharged with hardy - Perform void trial and DC hardy as indicated Encephalopathy -Likely related to prn pain meds vs. trial of trazodone -Continue scheduled tylenol and avoid pain medications unless absolutely necessary. -Consider Vistaril 25mg QPM for sleep does not cause significant drowsiness and recommended as needed for sleep Anemia: Due to acute blood loss from hip fracture. -Low Hb 7.8, improved to 8.5 this AM -Monitor with CBC repeat in 2-3 days Hypothyroidism: -Continue home levothyroxine GERD: -Continue home ranitidine DVT: Received Lovenox 40 mg subQ daily due to risk of DVT given immobility. Also has SCD's bilaterally. Code: FULL Current Hospital Diet Patient's current hospital diet: Regular Diet Discharge Diet Recommended Diet: Regular Diet Procedures Procedures Performed: Right Long Trochanteric Nail Insertion Pending Studies Studies pending at discharge: no Laboratory Results Hemoglobin A1c Test 12/17/17 06:33 Range/Units Estimated Average Glucose 103 mg/dl Hemoglobin A1c 5.2 4.5-5.6 % Lipid Panel Test 12/18/17 05:53 Range/Units Triglycerides Level 77 0-150 mg/dl Cholesterol Level 104 0-200 mg/dl HDL Cholesterol 32 mg/dl Cholesterol/HDL Ratio 3.3 LDL Cholesterol, Calculated 57 mg/dl Medical Emergencies . Who to Call and When: Medical Emergencies: If at any time you feel your situation is an emergency, please call 911 immediately. . Non-Emergent Contact Non-Emergency issues call your: Primary Care Provider . . "Provider Documentation" section prepared by Daniel Blanco. .
[2017-12-21] MEDS ORDERED: FURO-85 PO ×2 (12:12→12:48)
--- NOTE | 2017-12-21 12:55 | PROGRESS NOTE ---
DATE: 12/21/2017 SUBJECTIVE: A 72-year-old gentleman status post IM nailing of a right intertroch/subtroch fracture complicated by a stroke and right hemiparesis. He looks to be back to baseline. He still has no function of his right arm. The right leg, he is moving better. No new complaints. OBJECTIVE: VITAL SIGNS: Temperature 37.4. Vital signs stable. EXTREMITIES: Examination of the right hip and leg reveals the dressing to be intact. He has got some mild to moderate swelling of the entire right lower extremity. He dorsiflexes and plantarflex his foot appropriately on the right side and seems to be better than yesterday. He still has no significant function or motion of his right upper extremity. LABORATORY DATA: Hemoglobin 8.5, hematocrit 25.9. Electrolytes are stable. ASSESSMENT: A 72-year-old gentleman status post IM nailing of a right intertroch/subtroch fracture complicated by a postoperative stroke and right hemiparesis. 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 PLAN: 1. DVT prophylaxis including thigh-high TEDs, SCDs, and aspirin. Any anticoagulation necessary for stroke is acceptable to orthopedics. 2. PT/OT. He can weightbear as tolerated, right lower extremity. 3. Medical management as per the medicine and neurology services. 4. Disposition: Orthopedic okay for discharge any time medically stable. I do not think he will benefit from a rehab stay. I need to see him back 2 weeks post surgery. Any orthopedic questions can be directed at [phone].
[2017-12-21 13:54] VITALS: BP 124/78; PULSE 74; TEMP 37.4; O2SAT 96
--- NOTE | 2017-12-21 15:24 | Discharge Summary ---
Discharge Summary Date of Service Dec 21, 2017. Discharge Summary Admission Date: Dec 14, 2017 at 04:12 Discharge Date: Dec 21, 2017 Discharge Disposition: Rehab Principal Diagnosis: R hip fracture s/p ORIF; Acute CVA Problems/Secondary Diagnoses: LILLIAM Volume overloaded Encephalopathy Anemia Hypothyroidism GERD Immunizations: Have You Had Influenza Vaccine: Yes Influenza Vaccine Date: Jun 13, 2008 History of Tetanus Vaccine?: Yes History of Pneumococcal: No Pneumococcal Date: January 12, 2004 History of Hepatitis B Vaccine: No Hepatitis Immunization Date: January 11, 2003 Procedures: R hip ORIF - 12/14/17 Consultations: Neurology - Dr. Bell Orthopedics - Dr. Ramírez Medication Reconciliation New Medications: Furosemide (Lasix) 20 Mg Tab 1 TAB PO DAILY for 5 Days, #5 TAB 0 Refills Acetaminophen (Mapap) 325 Mg Tab 650 MG PO Q6H for 30 Days, #240 TAB Aspirin (Aspirin EC Low Dose) 81 Mg Ectab 81 MG PO DAILY for 30 Days, #30 TAB Ergocalciferol (Vitamin D 53765 Unit) 50,000 Unit Cap 63461 INTERUNIT PO Sa@0900 for 12 Days, #12 CAP Hydroxyzine HCl (Hydroxyzine HCl) 25 Mg Tab 25 MG PO QPM PRN for sleep for 30 Days, #30 TAB Continued Medications: Levothyroxine Sodium (Synthroid) 75 Mcg Tab 75 MCG PO DAILY Ranitidine (Zantac) 150 Mg Tab 75 MG PO DAILY PRN for HEARTBURN 1/2 OF A 150 MG TABLET , PRN Tolnaftate (Tolnaftate) 1 % Cre 1 APPLN TOP BID TO FEET Discharge Exam Constitutional: No fever Respiratory: + cough, no shortness of breath Cardiovascular: No chest pain Abdomen: No pain, No nausea, No vomiting Musculoskeletal: + problem reported (R hip pain ) Male : + problem reported (on hardy) Neurologic: + weakness (RUE and RLE), + numbness/tingling (RUE and RLE) General Appearance: in NAD Eyes: normal inspection ENT: normal ENT inspection Neck: supple Respiratory/Chest: lungs clear, normal breath sounds Cardiovascular: regular rate, rhythm, no murmur Abdomen: normal bowel sounds, non tender, soft Extremities: + pertinent finding (TTP of R hip region with C/D/I dressing); 2+ RLE and 1+LLE pitting edema Neurologic/Psychiatric: alert, oriented x 3 (reports name, LUIS, being at [facility] [place], month november and year 2017), + pertinent finding (RUE still flaccid with decreased sensation) Skin: warm/dry Hospital Course 72 year old male with PMH of hypothyroidism and vertigo admitted after a fall. Found to have intertrochanteric fracture of right hip. NOW s/p ORIF day 7 with acute CVA likely s/p acute ischemic insult post hip fracture in the setting of pre-existing cerebrovascular disease and carotid occlusion. RUE continues to be flaccid. Continued to be somewhat volume overloaded, received lasix x 2 and will discharge to N with lasix with further monitoring. Intertrochanteric fracture of the right hip: S/p fall, now POD#7 -Fracture s/p fall from ~3 ft, likely related to osteoporosis -WBAT -Continue Tylenol scheduled q6h (had encephalopathy on stronger pain medications ) -Continue Weekly Vit D 50,000 x 3 months -Recommend bisphosphonates in 1 month from discharge per PCP -inpatient rehab/PT/OT -Ortho: -follow up in 2 weeks outpt; R arm sling for comfort Acute CVA with right upper extremity weakness -MRI - acute ischemic insult: watershed type -MRA - complete occlusion of the left internal carotid artery; high degree stenosis of the left external carotid artery; moderate stenosis origin of right external carotid artery -Low lipids w/t prior ICH - no statins indicated -Speech swallow eval: tolerated slippery diet and thin liquids -Continue aspirin to 81 mg daily per neurology -Inpatient rehab Volume overloaded - diuresed ~ 6 L (in 2 days) - Received Lasix 20mg IV x 2 - Continued Lasix 20mg PO daily x 5 days and monitor volume status (discontinue as indicated - will not likely require long-term usage) : - Discharged with hardy - Perform void trial and DC hardy as indicated at [facility] Encephalopathy -Likely related to prn pain meds vs. trial of trazodone -Continue scheduled tylenol and avoid pain medications unless absolutely necessary. -Consider Vistaril 25mg QPM for sleep does not cause significant drowsiness and recommended as needed for sleep Anemia: Due to acute blood loss from hip fracture. -Low Hb 7.8, improved to 8.5 this AM -Monitor with CBC repeat in 2-3 days Hypothyroidism: -Continued home levothyroxine GERD: -Continued home ranitidine DVT: Received Lovenox 40 mg subQ daily due to risk of DVT given immobility. Also has SCD's bilaterally. Code: FULL Resident Physician Supervision Note: I was present with Dr. Blanco during the history and exam. I discussed the case with the resident and agree with the findings and plan as documented in the note. Any exceptions or clarifications are listed here: I also discussed the case with orthopedics - will need outpatient orthopedic follow up in two weeks. Diuresis continues; agree with oral Lasix for the next four or five days, with monitoring by staff at [facility]. Rick remains upon discharge to [facility] given his decreased mobility and diuresis - as his mobility improves and his diuresis slows, his Hardy can be removed. Documented By: Tom Hahn Total Time Spent: Less than 30 minutes This includes examination of the patient, discharge planning, medication reconciliation, and communication with other providers. Discharge Instructions Please refer to the electronic Patient Visit Report (Discharge Instructions) for additional information. Additional Copies To Phill Flynn D.O.
== END 2017-12-21 14:45 | DRG 480 ==
LOC: EDBD 00:59 → C.EDB 01:02 → C.MSN 04:12 → ENRESERV 04:23 → C.2T 12-16 17:43 → EDBEDREQ 12-19 11:17 → ENRESERV 12-19 11:50 → C.4E 12-19 13:31
PROVIDERS: ADMIT Hospitalist; ATTEND Family Medicine
PROC: 0QS636Z Reposition Right Upper Femur with Intramedullary Internal Fixation Device, Percutaneous Approach (ICD-10-PCS; principal; 2017-12-14 07:00)
DX: M84.451A Pathological fracture, right femur, initial encounter for fracture (principal); G92 Toxic encephalopathy; I69.351 Hemiplegia and hemiparesis following cerebral infarction affecting right dominant side; I97.821 Postprocedural cerebrovascular infarction following other surgery; N17.9 Acute kidney failure, unspecified; D62 Acute posthemorrhagic anemia; E03.9 Hypothyroidism, unspecified; C06.9 Malignant neoplasm of mouth, unspecified; K21.9 Gastro-esophageal reflux disease without esophagitis; I65.23 Occlusion and stenosis of bilateral carotid arteries; Z88.5 Allergy status to narcotic agent; Z87.891 Personal history of nicotine dependence

== ENCOUNTER → 2018-04-07 | Outpatient (CLI) | payer OTHER, MEDICARE ==
[~2018-04-07] MED LIST changes: +ACET-1047 PO; +ASPI-320 PO; +ATR25 PO; +ERGO500011 PO; +FURO-85 PO
== END ==
LOC: C.LABCC 08:05
PROVIDERS: ATTEND Internal Medicine
DX: D64.9 Anemia, unspecified (principal)